=== PATIENT | female | born 1980 | race Caucasian/White ===

== ENCOUNTER 2020-11-27 13:46 | Outpatient (CLI) | payer OTHER, SELFPAY | END 2020-11-27 13:47 | disposition home or self-care (01) | LOC: ANHCOVIDVC 13:46 | PROVIDERS: PCP Obstetrics & Gynecology | DX: Z23 Encounter for immunization (principal) | CPT/HCPCS: 0001A; 91300 ==

== ENCOUNTER 2020-12-18 14:04 | Outpatient (CLI) | payer OTHER, SELFPAY | END 2020-12-18 14:05 | disposition home or self-care (01) | PROVIDERS: PCP Obstetrics & Gynecology | DX: Z23 Encounter for immunization (principal) | CPT/HCPCS: 0002A; 91300 ==

== ENCOUNTER → 2021-01-15 15:02 | Outpatient (CLI) | payer OTHER, SELFPAY ==
--- NOTE | ~2021-01-15 | US_ITS ---
EXAMINATION: US pelvic complete w TV DATE: 01/15/2021 16:10 INDICATION: Pre-fertility check. TECHNIQUE: Multiple transabdominal and transvaginal sonographic images of the pelvis were obtained. COMPARISON: Pelvis MRI 10/20/2018 FINDINGS: TRANSABDOMINAL ULTRASOUND: The uterus measures 8.9 x 4.0 x 5.9 cm. There is no free fluid in the pelvis. TRANSVAGINAL ULTRASOUND: The endometrial complex measures 10 mm in thickness. There is a 2.3 cm subserosal fibroid posteriorly . There is a 10 mm intramural fibroid. The right ovary measures 3.5 x 2.5 x 1.8 cm. There are 5 mm an d 11 mm follicles in the right ovary. The left ovary measures 2.6 x 2.8 x 2.5 cm. 3 mm, 5 mm, and 13 mm follicles in the left ovary. There is normal vascular flow in the ovaries. IMPRESSION: 1. Uterine fibroids. Reviewed, dictated and finalized at location A. IMPRESSION: 1. Uterine fibroids.
== END ==
PROVIDERS: Visit Provider Obstetrics & Gynecology
DX: R10.2 Pelvic and perineal pain (principal); D25.9 Leiomyoma of uterus, unspecified
CPT/HCPCS: 76830; 76856

== ENCOUNTER → 2021-04-24 09:23 | Outpatient (CLI) | payer OTHER, SELFPAY ==
--- NOTE | ~2021-04-24 | US_ITS ---
EXAMINATION: US transvaginal DATE: 04/24/2021 10:14 INDICATION: Assess endometrial thickness for fertility TECHNIQUE: Multiple endovaginal sonographic images of the pelvis were obtained. COMPARISON: None. FINDINGS: The uterus measures 8.7 x 4.2 x 5 cm. A 1.9 x 1.5 x 2.2 cm hypoechoic area of the posterior uterus has the appearance of a subserosal fibroid. The endometrial complex measures 8 mm. The right ovary measures 3.7 x 2 x 2.3 cm. The left ovary measures 2.4 x 2.1 x 2.1 cm. There is normal vascular flow in the ovaries. There is no free fluid in the pelvis. IMPRESSION: 1. Endometrial thickness is 8 mm. Reviewed, dictated and finalized at location B.
== END ==
PROVIDERS: Visit Provider Obstetrics & Gynecology
DX: R93.89 Abnormal findings on diagnostic imaging of other specified body structures (principal); R10.12 Left upper quadrant pain
CPT/HCPCS: 76830

== ENCOUNTER 2021-07-28 13:01 | Emergency (ER) | payer OTHER, SELFPAY ==
[2021-07-28 13:10] VITALS: BP 130/81; PULSE 90; RESP 18; TEMP 36.7; O2SAT 100
--- NOTE | 2021-07-28 13:21 | ED.LOWEXIN ---
HPI - Extremity Injury (Lower) General Chief Complaint: Extremity Injury, Lower Stated Complaint: Left Knee Pain Time Seen by Provider: 07/28/21 13:05 Source: patient and RN notes reviewed History of Present Illness HPI Narrative: Patient is a 41-year-old female who presents the urgent care with complaints of left knee pain that started last night. Patient has been taking Aleve for the pain and states that it did slightly help last night when she was unable to sleep. Patient denies of any trauma, injury or fall. Denies of any known swelling. Patient states that she ran a [employer] approximately 2 weeks ago and was fine at that time . Patient states that she is leaving for [place] on Tuesday and was concerned due to the heavy amount of walking she will be doing. Patient states that she is going to [place] for in vitro fertilization. No other acute complaints. No acute distress noted. Patient read the plan of care. Some parts of this dictation were generated by voice recognition software and may contain typographical and/or grammatical inaccuracies. Related Data Home Medications Medication Instructions Recorded Confirmed drospirenone-ethinyl estradiol tablet 07/28/21 estradiol mg 07/28/21 levothyroxine 07/28/21 Allergies Allergy/AdvReac Type Severity Reaction Status Date / Time No Known Allergies Allergy Unverified 09/22/18 13:03 Review of Systems Review of Systems: CONSTITUTIONAL: Denies fever, chills, or sweats. EYES: Denies visual changes, redness, or discharge. ENT: Denies rhinorrhea, congestion, sore throat, or otalgia. CARDIOVASCULAR: Denies chest pain, palpitations, or edema. RESPIRATORY: Denies cough or dyspnea. GASTROINTESTINAL: Denies abdominal pain, nausea, vomiting, or diarrhea. GENITOURINARY: Denies dysuria or hematuria. SKIN: Denies rash or itching. MUSCULOSKELETAL: Reports of left knee pain NEUROLOGIC: Denies headache, numbness, or weakness. All other systems reviewed are negative, except as documented in HPI. PMFSH Comments At the time of my signature, I reviewed and agree with the nursing past medical, surgical, social, and family history. There is no relevant family history pertinent to the patient complaint. Exam Narrative: GENERAL: This is a well-nourished, well-developed patient, in no apparent distress. HEAD: normocephalic, atraumatic. EYES: PERRL. Sclera clear/white. Vision is grossly intact. EARS: External ears normal NOSE: External nose normal with no obvious nasal discharge, nares without redness, no rhinorrhea. THROAT: Mucous membranes moist NECK: Neck supple CARDIOVASCULAR: Regular rate and rhythm without murmurs, gallops, or rubs. RESPIRATORY: Clear to auscultation. Breath sounds equal bilaterally. No wheezes, rales, or rhonchi. SKIN: warm, intact with no suspicious lesions or rash, good texture and turgor. NEURO: awake, alert, and oriented to person, place and time. There were no obvious focal neurologic abnormalities. EXTREMITIES: No obvious edema, erythema or ecchymosis noted to the left knee. Mild left anterior medial knee tenderness without notable effusion. Range of motion within normal limits with mild exacerbated pain with flexion and weightbearing. Negative drawer test. No obvious injury or deformity noted to the left lower extremity. Positive strong left pedal pulse with capillary refill less than 2 seconds. Course Vital Signs Vital signs: Vital Signs Temperature 98.1 F 07/28/21 13:10 Pulse Rate 90 07/28/21 13:10 Respiratory Rate 18 07/28/21 13:10 Blood Pressure 130/81 07/28/21 13:10 Pulse Oximetry 100 07/28/21 13:10 Temperature 98.1 F 07/28/21 13:10 Pulse Rate 90 07/28/21 13:10 Respiratory Rate 18 07/28/21 13:10 Blood Pressure 130/81 07/28/21 13:10 Pulse Oximetry 100 07/28/21 13:10 Reviewed MDM - Extremity Injury (Lower) MDM Narrative Medical decision making narrative: Advised the patient to wear the knee brace counter from [facility]
== END 2021-07-28 13:30 | disposition home or self-care (01) ==
PROVIDERS: Emergency Provider Nurse Practitioner Family; PCP Physician Assistant
DX: M25.562 Pain in left knee (principal); E89.0 Postprocedural hypothyroidism
CPT/HCPCS: 99212; G0463

== ENCOUNTER → 2021-08-19 14:35 | Outpatient (CLI) | payer OTHER, SELFPAY ==
--- NOTE | ~2021-08-19 | US_ITS ---
EXAMINATION: US OB transvaginal DATE: 08/19/2021 15:26 INDICATION: First trimester viability assessment TECHNIQUE: Real-time pelvic transabdominal and transvaginal ultrasound was performed. COMPARISON: None. FINDINGS: The uterus measures 9.3 x 6.0 x 6.1 cm multiple uterine fibroids are identified. The larges t measures 2.6 cm at the posterior uterine body. There is a 5 mm intrauterine fluid collection. A qu estionable yolk sac is seen. No pole is identified. The right ovary measures 3.1 x 1.6 x 3.1 cm. The left ovary measures 2.9 x 2.3 x 2.5 cm. There is nor mal vascular flow in the ovaries. There is no free fluid in the pelvis. IMPRESSION: 1. Intrauterine fluid collection which could reflect early gestational sac and possible yolk sac. If the patient is clinically stable, recommend followup with serial beta-hCG and ultrasound. Reviewed, dictated and finalized at location A. 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
== END ==
PROVIDERS: Visit Provider Student in an Organized Health Care Education/Training Program
DX: O36.80X0 Pregnancy with inconclusive fetal viability, not applicable or unspecified (principal)
CPT/HCPCS: 76817

== ENCOUNTER 2021-08-27 09:33 | Outpatient (CLI) | payer OTHER, SELFPAY | END 2021-08-27 09:34 | disposition home or self-care (01) | LOC: ANHLAB 09:36 | PROVIDERS: PCP Physician Assistant; Visit Provider Obstetrics & Gynecology | DX: O20.0 Threatened abortion (principal) | CPT/HCPCS: 36415; 84702 ==

== ENCOUNTER → 2021-09-01 08:40 | Outpatient (CLI) | payer OTHER, SELFPAY ==
--- NOTE | ~2021-09-01 | US_ITS ---
EXAMINATION: US OB transvaginal DATE: 09/01/2021 09:11 INDICATION: Threatened spontaneous TECHNIQUE: Real-time transabdominal and transvaginal obstetric ultrasound. FINDINGS: Ultrasound dated 08/19/2021 The uterus measures 9.8 x 5.2 x 4.7 cm. There are multiple uterine fibroids, largest pedunculated fib roid measures 3.8 x 3.3 x 3.2 cm. There is an intrauterine gestational sac, with pole identifie d. There is a small subchorionic hemorrhage. The crown rump length measures 0.62 cm, which correlates with a estimated gestational age of 6 weeks 3 days. heart tones are identified measuring 124 BPM. The ovaries are within normal limits without significant ovarian or adnexal mass. No free fluid. Righ t ovary measures 3.4 x 2.2 x 2.9 cm. Left ovary measures 3 x 2.6 x 2 cm. IMPRESSION: 1. SL IUP with an EGA of 6 weeks, 3 days (EDC by current ultrasound of 04/24/2022). 2: Small subchorionic hemorrhage. 3: Uterine fibroids, largest measuring up to 3.8 cm. Reviewed, dictated and finalized at location A. 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 SL IUP with an EGA of 6 weeks, 3 days (EDC by current ultrasound of 2). 2: Small subchorionic hemorrhage. 3: Uterine fibroids, largest measuring up to 3.8 cm.
== END ==
PROVIDERS: Visit Provider Obstetrics & Gynecology
DX: O20.0 Threatened abortion (principal); O20.8 Other hemorrhage in early pregnancy; Z3A.01 Less than 8 weeks gestation of pregnancy; D25.9 Leiomyoma of uterus, unspecified
CPT/HCPCS: 76817

== ENCOUNTER 2021-10-14 14:48 | Outpatient (CLI) | payer OTHER, SELFPAY ==
[2021-10-14 15:15] VITALS: BP 128/79; PULSE 80
[2021-10-14 15:30] VITALS: BP 131/76; PULSE 80
[2021-10-14 15:45] VITALS: BP 129/76; PULSE 77
[2021-10-14 16:00] VITALS: BP 125/85; PULSE 78
--- NOTE | 2021-10-14 16:05 | PC.NURSE ---
Dr. Amelia Alvarado on unit. BPs given. January D/C home.
--- NOTE | 2021-10-14 16:29 | P.PNOB_ITS ---
OB - Triage/Final Diagnosis Visit Information Date of evaluation: 10/14/21 Reason for evaluation: other (headache) Comments/Additional reasons for admission: I have assessed the risk for this patient, Esther Garcia, and determined that she would benefit from o bservation care. Evaluation Vital signs: Vital Signs - 24 hr 10/14/21 15:15 10/14/21 15:30 10/14/21 15:45 Pulse Rate 80 80 77 Blood Pressure 128/79 131/76 129/76 10/14/21 16:00 Pulse Rate 78 Blood Pressure 125/85
== END 2021-10-14 16:13 | disposition home or self-care (01) ==
LOC: ANHOBOP 14:52 → ANHOBPP 14:55
PROVIDERS: Visit Provider Obstetrics & Gynecology
DX: O26.899 Other specified pregnancy related conditions, unspecified trimester (principal); R03.0 Elevated blood-pressure reading, without diagnosis of hypertension; Z3A.13 13 weeks gestation of pregnancy
CPT/HCPCS: 99199

== ENCOUNTER 2022-03-29 13:54 | Outpatient (RCR) | payer OTHER, SELFPAY ==
[2022-03-29 14:30] VITALS: BP 130/81; PULSE 81
== END 2022-04-23 14:57 | disposition home or self-care (01) ==
LOC: ANHOBOP 13:54
PROVIDERS: PCP Physician Assistant; Visit Provider Obstetrics & Gynecology
DX: Z36.89 Encounter for other specified antenatal screening (principal); Z3A.36 36 weeks gestation of pregnancy
CPT/HCPCS: 59025

== ENCOUNTER 2022-04-19 15:59 | Inpatient (IN) | payer OTHER, SELFPAY ==
[2022-04-19] VITALS (12 sets, daily range): BP systolic 128–159; BP diastolic 83–98; PULSE 74–96; BMI 33.0
--- NOTE | 2022-04-19 16:33 | LDADM ---
This patient, Esther Garcia, was admitted to Labor/Delivery/Recovery 108 on 04/19/22 at 15:59. Plans for labor, pain management and were discussed with patient. Patient/family oriented to hospital policies and general routines including ID bracelet, bed and alarms, visiting hours, pain management, procedures, bathroom and other care routines, personal items, smoking policy, room service/diet and guest tray routines, infant security routines, and visiting hours. Patient/Family are encouraged to report perceived risks to care and to ask questions if they do not understand what they are told or what they should do. See OBIX for further documentation.
[2022-04-19 16:42] LABS: Basophils Percent Auto 0.1 % (0.2-1.2); Eosinophils Absolute Auto 0.1 K/mm3 (0-0.3); Eosinophils Percent Auto 0.9 % (0-4.4); Hematocrit 38.9 % (37.0-47.0); Immature Granulocyte Absolute 0.03 K/mm3 (0.00-0.031); Immature Granulocyte Percent A 0.4 % (0-0.5); Lymphocytes Absolute Auto 1.43 K/mm3 (0.9-3.2); Lymphocytes Percent Auto 18.3 % (18.3-44.2); Mean Corpuscular HGB Conc 33.4 g/dl (32-36); Mean Corpuscular Hemoglobin 30.3 pg (26-34); Mean Corpuscular Volume 90.7 fl (80-100); Mean Platelet Volume 10.3 fl (7.4-10.4); Monocytes Absolute Auto 0.5 K/mm3 (0.1-0.6); Monocytes Percent Auto 5.9 % (2.6-8.5); Neutrophils Absolute Auto 5.8 K/mm3 (1.3-6.7); Neutrophils Percent Auto 74.4 % (45.5-73.1); Platelet Count Result 220 k/mm3 (150-375); Red Blood Count 4.29 M/mm3 (4.2-5.4); White Blood Count 7.8 K/mm3 (4.5-10.0)
[2022-04-19] MEDS: DINOPROSTONE 10 MG VAG INSERT VAGINAL (16:52)
--- NOTE | 2022-04-19 19:07 | WPDANESEPP ---
Anes - Eval Pre Procedure Procedure: labor epidural Date/Time: 04/19/22 19:07 Surgeon: isaiah Preop Diagnosis: pain during labor Pre Op Diagnosis: Induction of Labor Patient Data Age: 41 Gender: F Height: 1.78 m Weight: 104.5 kg Last Vital Signs Pulse 96 04/19/22 18:45 BP 139/94 H 04/19/22 18:45 O2 Del Method Room Air 04/19/22 16:30 Allergies Allergy/AdvReac Type Severity Reaction Status Date / Time No Known Allergies Allergy Verified 04/19/22 17:44 Home Medications Medication Instructions Recorded Confirmed Type levothyroxine 25 mcg tablet 25 mcg PO DAILY 07/28/21 04/19/22 History Laboratory Tests 04/19/22 04/19/22 04/19/22 16:19 16:19 17:16 WBC 7.8 K/mm3 K/mm3 (4.5-10.0) RBC 4.29 M/mm3 M/mm3 (4.2-5.4) Hgb 13.0 g/dL g/dL (12.0-15.0) Hct 38.9 % % (37.0-47.0) MCV 90.7 fl fl (80-100) MCH 30.3 pg pg (26-34) MCHC 33.4 g/dl g/dl (32-36) RDW 13.0 % % (11.5-14.5) Plt Count 220 k/mm3 k/mm3 (150-375) MPV 10.3 fl fl (7.4-10.4) Immature Gran % (Auto) 0.4 % % (0-0.5) Neut % (Auto) 74.4 % H % (45.5-73.1) Lymph % (Auto) 18.3 % % (18.3-44.2) [place] % (Auto) 5.9 % % (2.6-8.5) Eos % (Auto) 0.9 % % (0-4.4) Baso % (Auto) 0.1 % L % (0.2-1.2) Lymph # (Auto) 1.43 K/mm3 K/mm3 (0.9-3.2) [place] # (Auto) 0.5 K/mm3 K/mm3 (0.1-0.6) Eos # (Auto) 0.1 K/mm3 K/mm3 (0-0.3) Baso # (Auto) 0.0 K/mm3 K/mm3 (0.0-0.1) Abs Immat Gran (auto) 0.03 K/mm3 K/mm3 (0.00-0.031) Absolute Neuts (auto) 5.8 K/mm3 K/mm3 (1.3-6.7) Absolute Nucleated RBC 0.0 K/mm3 K/mm3 (0.0-0.012) Nucleated RBC % 0.0 % % (0.0-0.2) RPR Pending Blood Type O Positive Antibody Screen Negative Patient hx anesthesia problems: none Family hx anesthesia problems: none Results Review: All pre-operative results and documents have been reviewed as part of the pre-operative evaluation. [facility] Past Medical History Medical History (Updated 04/19/22 @ 19:08 by Casie Griffin CRNA) Hypothyroid IUP (intrauterine ), incidental Obesity (BMI 30-39.9) Family History Family History (Updated 03/27/22 @ 13:50 by Haley Seaman RN) Other Unknown family medical history Social History Social History Smoking status: Never smoker Substance use: never Spiritual care concerns: No Exam Day of Procedure 04/19/22 19:07
[2022-04-20] VITALS (242 sets, daily range): BP systolic 61–157; BP diastolic 26–132; PULSE 55–219; RESP 16–18; TEMP 35.9–37.6; O2SAT 98–100
[2022-04-20] MEDS: LACTATED RINGERS 1,000 ML 125 ML IV CONT ×6 (00:15→15:43)
[2022-04-20] MEDS: fentaNYL CITRATE INJ (*CRX) 100 MCG/2 ML VIAL 50 MCG IV PUSH ×2 (01:03→08:21)
[2022-04-20 06:20] LABS: Rapid Plasma Reagin Non-Reactive (NonReactive)
[2022-04-20] MEDS: OXYTOCIN 30 UNITS/NS 500 ML 30 UNITS/500 ML BAG 6 UNITS IV CONT (06:35)
[2022-04-20 06:46] LABS: Basophils Percent Auto 0.1 % (0.2-1.2); Eosinophils Absolute Auto 0.1 K/mm3 (0-0.3); Eosinophils Percent Auto 1.2 % (0-4.4); Hematocrit 40.4 % (37.0-47.0); Hemoglobin 13.2 g/dL (12.0-15.0); Immature Granulocyte Absolute 0.05 K/mm3 (0.00-0.031); Immature Granulocyte Percent A 0.6 % (0-0.5); Lymphocytes Absolute Auto 1.41 K/mm3 (0.9-3.2); Mean Corpuscular HGB Conc 32.7 g/dl (32-36); Mean Corpuscular Hemoglobin 30.4 pg (26-34); Mean Corpuscular Volume 93.1 fl (80-100); Mean Platelet Volume 10.9 fl (7.4-10.4); Monocytes Absolute Auto 0.6 K/mm3 (0.1-0.6); Neutrophils Absolute Auto 5.7 K/mm3 (1.3-6.7); Neutrophils Percent Auto 73.1 % (45.5-73.1); Platelet Count Result 227 k/mm3 (150-375); Red Blood Count 4.34 M/mm3 (4.2-5.4); Red Cell Distribution Width 13.2 % (11.5-14.5); White Blood Count 7.8 K/mm3 (4.5-10.0)
--- NOTE | 2022-04-20 08:16 | PM.IMHP ---
H&P: HPI History of Present Illness Date/Time: 04/20/22 08:16 Chief Complaint: Here for induction of labor. Narrative: 41 y/o at 39 6/7 weeks here for induction of labor. IVF / donor egg . Well-controlled hypothyroidism. Cervidil last night, has been withdrawn. Feeling occasional contractions. GBS neg. Review of Systems Review of Systems: All systems reviewed & are unremarkable except as noted in HPI and below PMFSH Past Medical History Medical History (Updated 04/20/22 @ 08:20 by Elias Sharma MD) Hypothyroid IUP (intrauterine ), incidental Obesity (BMI 30-39.9) Surgical History Surgical History History of breast augmentation History of D&C History of thyroidectomy, total Family History Family History Other Diabetes mellitus Hypertension Unknown family medical history Social History Social History Smoking status: Never smoker Substance use: never Spiritual care concerns: No Meds Home Medications and Allergies Home Medications Medication Instructions Recorded Confirmed Type levothyroxine 25 mcg tablet 25 mcg PO DAILY 07/28/21 04/19/22 History Allergies Allergy/AdvReac Type Severity Reaction Status Date / Time No Known Allergies Allergy Verified 04/19/22 17:44 Vital Signs Vital Signs - 24 hr 04/19/22 16:19 04/19/22 16:30 04/19/22 16:45 Temperature Pulse Rate 91 96 86 Respiratory Rate Blood Pressure 143/88 H 150/93 H 148/93 H Oxygen Delivery 04/19/22 17:30 04/19/22 17:45 04/19/22 18:00 Temperature Pulse Rate 85 91 91 Respiratory Rate Blood Pressure 148/98 H 138/91 H 135/93 H Oxygen Delivery 04/19/22 18:15 04/19/22 18:30 04/19/22 18:45 Temperature Pulse Rate 85 89 96 Respiratory Rate Blood Pressure 135/83 139/88 139/94 H Oxygen Delivery 04/19/22 23:04 04/19/22 23:15 04/19/22 23:30 Temperature Pulse Rate 74 79 83 Respiratory Rate Blood Pressure 159/86 H 133/83 128/92 H Oxygen Delivery 04/20/22 03:27 04/20/22 06:36 04/20/22 06:45 Temperature 36.5 C 36.2 C L Pulse Rate 65 92 83 Respiratory Rate 16 18 Blood Pressure 139/77 153/95 H 146/92 H Oxygen Delivery 04/20/22 07:02 04/20/22 07:15 04/20/22 07:31 Temperature Pulse Rate 85 98 90 Respiratory Rate Blood Pressure 137/84 104/81 137/73 Oxygen Delivery 04/20/22 07:45 04/20/22 08:01 04/20/22 08:15 Temperature Pulse Rate 86 86 68 Respiratory Rate Blood Pressure 134/76 135/82 140/87 Oxygen Delivery 04/19/22 16:30 Temperature Pulse Rate Respiratory Rate Blood Pressure Oxygen Delivery Room Air Exam Const: Orientation/consciousness: patient oriented x3 Other: Well-developed, well-nourished female in no acute distress. Neck: Thyroid: thyroid normal Lymphatic: no lymphadenopathy noted (in neck, axilla or inguinal nodes) Resp: Effort & Inspection: normal respiratory effort Auscultation: clear to auscultation bilaterally Cardio: Rate: regular rate Rhythm: regular rhythm Heart sounds: S1 normal heart sound present and S2 normal heart sound present GI: Other: ABD: Soft, nontender, nondistended, gravid, vertex. NST reactive. TOCO: contractions irregularly. No guarding or rebound tenderness. No hepatosplenomegaly. : General: Yes no CVA tenderness Other: Cervix 2/50/-2. AROM with clear fluid. Vertex. Back/Spine/Pelvis: Back: no CVA tenderness Skin: General skin exam: normal color and no rashes or lesions noted Neuro: General: patient oriented x3 Extrem: Other: Extremities: nontender with no edema Psych: Mental Status: mental status grossly normal Affect: normal affect H&P: Results Labs Labs: Short CBC 04/19/22 04/20/22 Range/Units 16:19 06:41 WBC 7.8 7.8 (4.5-10.0) K/m
[2022-04-20] MEDS: PHENYLEPHRINE 1,000 MCG/10 ML SYRINGE 100 MCG IV PUSH ×3 (10:48→11:01)
[2022-04-20] MEDS: ePHEDrine sulfate INJ 50 MG/ML AMPUL IV PUSH ×2 (11:09→11:28)
--- NOTE | 2022-04-20 11:58 | PM.OBPNLAB ---
Pain Control Date/time seen: 04/20/22 11:58 Comfortable with epidural. AVSS NST reactive. Irregular contractions. Cervix 2-3/50/-2. IUPC placed. Continue labor.
[2022-04-20] MEDS: ONDANSETRON INJ 4 MG/2 ML VIAL IV PUSH (15:52)
--- NOTE | 2022-04-20 16:46 | PM.OBPNLAB ---
Pain Control Date/time seen: 04/20/22 16:46 Comfortable with epidural. AVSS NST reactive TOCO: contractions every 3-4 min Cervix 4-5/80/-2 Continue labor
--- NOTE | 2022-04-20 22:45 | PM.OBPNLAB ---
Pain Control Date/time seen: 04/20/22 22:45 Pushing. AVSS NST reactive TOCO: contractions every 3 min Cervix C/+2 Anticipate .
--- NOTE | 2022-04-20 23:49 | PM.OBPRVD ---
OB - Delivery Note Procedure Delivery date: 04/20/22 Procedure: Induction of labor with Induction method: Per Cervidil Protocol Delivery augmentation: Rupture of Membranes and Pitocin Delivery monitor: External FHT, External Uterine and Internal Uterine Route of delivery: Laceration Description: Perineal - 2nd Degree Delivery repair: vicryl (3-0 Vicryl) Specimen: Yes (cord blood) Quantitative Blood Loss (ml): 320 Anesthesia type: Epidural Disposition: PACU Complications: None Narrative: 41 y/o at 39 6/7 weeks gestation who presented to the hospital for induction of labor. Cervidil was placed overnight, then withdrawn the next morning. Oxytocin was administered intravenously. Amniotomy was performed with return of clear fluid. She received an epidural for pain control. Her labor progressed and her cervix dilated completely. She pushed with good effort and delivered the 's head to the perineum. A loose nuchal cord was splinted and the body delivered. The cord was reduced and the nose and mouth were bulb suctioned. After a delay, the cord was clamped and cut. The was handed off the field. Cord blood was collected. The placenta delivered spontaneously and was grossly normal in appearance. The usual 3 vessel cord was noted. A second degree midline perineal laceration was sustained. This was reapproximated using 3 0 Vicryl in the usual layered fashion. Excellent hemostasis resulted as did excellent reapproximation of the normal anatomy. Needle and instrument counts were correct. The patient was taken to recovery room in stable condition. The infant went to the nursery in stable condition. I was present and scrubbed for the entire delivery. Baby Date of : 04/20/22 Time of : 23:25 Weeks of gestation at delivery: 39 gender: Male Weight (pounds): 7 Weight (ounces): 7 presentation: vertex position: Right Occiput Anterior Placenta delivery description: Spontaneous and Normal Configuration Cord Vessel Description: 3 Vessels, Nuchal Cord and Delayed Cord Clamping score one minute: 9 score five minutes: 9
--- NOTE | 2022-04-20 23:53 | PM.OBDSVD ---
DS: Admitting Diagnosis Discharge Date 04/22/11 Admitting Diagnosis IUP at 39 6/7 weeks DS: Discharge Diagnosis Discharge Diagnosis (1) (normal spontaneous vaginal delivery): Code(s): O80 - Encounter for full-term uncomplicated delivery Status: Acute OB - DS: Summary OB Procedures : None OB Procedures Intrapartum: Spontaneous Vag Delivery OB Procedures: : None Time Spent with Patient Time attestation: Total time spent providing and/or coordinating discharge services: DS: Data Data Completed and Pending Labs on day of discharge: Labs from last 24 hours 04/20/22 04/19/22 06:41 16:19 WBC 7.8 RBC 4.34 Hgb 13.2 Hct 40.4 MCV 93.1 MCH 30.4 MCHC 32.7 RDW 13.2 Plt Count 227 MPV 10.9 H Immature Gran % (Auto) 0.6 H Neut % (Auto) 73.1 Lymph % (Auto) 18.0 L [place] % (Auto) 7.0 Eos % (Auto) 1.2 Baso % (Auto) 0.1 L Lymph # (Auto) 1.41 [place] # (Auto) 0.6 Eos # (Auto) 0.1 Baso # (Auto) 0.0 Abs Immat Gran (auto) 0.05 H Absolute Neuts (auto) 5.7 Absolute Nucleated RBC 0.0 Nucleated RBC % 0.0 RPR Non-reactive Discharge Plan Discharge Attending physician on discharge: Elias Sharma Discharging Clinician: Elias Sharma Patient Disposition: Home, Self-Care Activity: pelvic rest Diet: regular Discharge Instructions: Call or return if temperature above 100.4? F, increased abdominal pain, increased vaginal bleeding or any new problems. Stand Alone Forms: General Discharge Information Follow-up/Referrals: Elias Sharma MD [Physician] - 6 Weeks Discharge Medications: New ibuprofen 600 mg tablet 600 mg PO Q6H PRN (Reason: cramps) Qty: 30 0RF Continued levothyroxine 25 mcg tablet 25 mcg PO DAILY Rx Instructions: Pt states taking 200 mcg daily Date of admission: 04/19/22 15:59 Primary Care Provider: ChaLeslie Admitting Provider: Elias Sharma Attending physician on admission: Elias Sharma Condition: Stable
[2022-04-21] VITALS (9 sets, daily range): BP systolic 137–156; BP diastolic 76–93; PULSE 74–104; RESP 16–18; TEMP 36.3–36.6; O2SAT 98–100
[2022-04-21] MEDS: OXYTOCIN 30 UNITS/NS 500 ML 30 UNITS/500 ML BAG 125 UNITS IV CONT (00:05)
[2022-04-21] MEDS: WITCH HAZEL 40 PADS 1 PAD TOPICAL (02:03)
[2022-04-21] MEDS: BENZOCAINE 20% AER SPR (*SP) 56 GM CAN 1 SPRAY TOPICAL (02:03)
[2022-04-21] MEDS: IBUPROFEN 600 MG TABLET PO ×4 (02:12→23:26)
--- NOTE | 2022-04-21 07:00 | PC.NURSE ---
PT introductions made and plan of care discussed per post , pain management, breast feeding, possible pumping, daily care activities. PT and spouse both received such instruction and no barriers to learning identified at this time. PT received such instructions per one to one discussion, mom baby care guide and demonstrations this shift. PT verbalized understanding of such care.
--- NOTE | 2022-04-21 08:19 | WPDANLDPN2 ---
Anes-Prog Note L&D Date/Time: 04/21/22 08:19 Comfortable throughout: labor and delivery Neuraxial method: epidural Neuro status: Neuro function grossly intact. Cardiovascular status: normal Respiratory status: normal Airway patency: baseline Mental status: baseline Post-Op hydration status: normal Vital Signs: Last Vital Signs Temp 97.7 F 04/21/22 02:39 Pulse 96 04/21/22 02:39 Resp 18 04/21/22 02:39 BP 150/79 H 04/21/22 02:39 Pulse Ox 98 04/21/22 02:39 O2 Del Method Room Air 04/21/22 02:39 Pain score (VAS): 09/21 I/O: Intake & Output 04/20/22 04/21/22 04/21/22 23:59 07:59 15:59 Intake Total 500 Output Total 110 Balance 390 Post-procedural complaints: none Patient feedback: Patient satisfied with anesthetic care.
--- NOTE | 2022-04-21 08:39 | PM.OBPNVD ---
OB - PN: Subj Subjective Date/time seen: 04/21/22 08:39 Narrative: Pain OK. Would like circumcision for son. OB - PN: Obj Data Labs CBC & Chem 7: 04/20/22 06:41 OB - PN A/P Plan Comments: A: PPD#1, doing well. P: Routine care. Reviewed circ. Exam Psych: Other: AVSS ABD soft, nontender, fundus firm EXT nontender
[2022-04-21] MEDS: MULTIVIT/MIN/PREN/FOL AC/IRON TABLET 1 TAB PO (09:00)
[2022-04-21] MEDS: LEVOTHYROXINE SODIUM 100 MCG TABLET 200 MCG PO (10:15)
[2022-04-21] MEDS: DOCUSATE SODIUM 100 MG CAPSULE PO ×2 (10:15→16:28)
[2022-04-21] MEDS: ACETAMINOPHEN 325 MG TABLET 650 MG PO ×3 (10:18→23:25)
[2022-04-21] MEDS: LANOLIN (LANSINOH) 7.5 GM CREAM 1 APPLIC TOPICAL (10:20)
--- NOTE | 2022-04-21 13:50 | PC.NURSE ---
[id number] (Primary RN reported blood sugar of 77 mg/dl at 0755) Introductions were made, then consulted with patient to assess needs related to . Mother led the conversation with her?plans to feed?her infant and the?experience so far. Resources provided for inpatient and outpatient services using a resource guide and mom/baby guide. Mother voiced understanding of information and receives assistance at this time. Mother led the conversation with her questions regarding . Mother works well with her with encouragement and education. Encouraged understanding of the benefits of skin to skin (unwrapping infant and placing vertically on her chest), responsive feeding and how to watch for early feeding signs, frequency of feeding on demand about every 8-12 times in 24 hours (every 2-3 hours), milk production, duration of feeding, signs of adequate intake/output and how to record on the feeding sheet. Reviewed positioning and ear, shoulder, hip alignment, supporting the breast, asymmetrical latch (off-center), and leading with the chin with a big open side gape. latched optimally to the right breast in football position. Education given to mother of how to visualize suck/swallow ratios and drinking at the breast. Mother states she has nipple tenderness and rates pain 4 . Infant is latched with big, wide, open gape, nice rounded cheek line, and good suck swallow ratios. Infant detached two different times to assess mother's nipple and there is no misshaping of signs of a poor latch. Infant was able to maintain latch without discomfort to mother after mother noticed the sensitivity might be related to her nipples have been tender with her . After for 5 min mother states the pain was better and it felt like sucking . Nipple care reviewed with optimal latch and good positioning. Reminding mother of comfort measures of healing with a warm and wet washcloth to rinse breast, then leave open to air-dry as needed. Reviewed good handwashing when or touching the breast/nipples to prevent infection. Resources used to facilitate learning were used with the visual handouts/ tool/mom and baby guide. Mother voiced understanding of responsive feedings, stimulating with skin to skin, hand expressed colostrum, talking to infant to encourage if it has been 2 -3 hours since the start of the last , to call if does not latch, and/or there is discomfort with . Reported to the primary RN.
[2022-04-22 08:30] VITALS: BP 139/79; PULSE 78; RESP 18; TEMP 36.6; O2SAT 99
--- NOTE | 2022-04-22 08:56 | PM.OBPNVD ---
OB - PN: Subj Subjective Date/time seen: 04/22/22 08:56 Narrative: Pain OK. Would like to go home. OB - PN: Obj Data Labs CBC & Chem 7: 04/20/22 06:41 OB - PN A/P Assessment and Plan (1) (normal spontaneous vaginal delivery): Code(s): O80 - Encounter for full-term uncomplicated delivery Status: Acute Plan Comments: A: PPD#2, doing well. P: Home to f/u 6 weeks. Time Spent With Patient Time with patient: less than 15 minutes Exam Psych: Other: AVSS ABD soft, nontender, fundus firm EXT nontender
[2022-04-22] MEDS: LEVOTHYROXINE SODIUM 100 MCG TABLET 200 MCG PO (09:28)
[2022-04-22] MEDS: ACETAMINOPHEN 325 MG TABLET 650 MG PO (09:28)
[2022-04-22] MEDS: MULTIVIT/MIN/PREN/FOL AC/IRON TABLET 1 TAB PO (09:28)
[2022-04-22] MEDS: IBUPROFEN 600 MG TABLET PO (09:29)
--- NOTE | 2022-04-22 13:17 | PC.NURSE ---
[id number] Mother led the conversation with her experience and plan to feed her so far and her ability to independently latch optimally without discomfort at times and using supplementation of formula to feed . Reminded parents to use good handwashing technique to prevent infection. Mother is feeding appropriately for growth of infant and understands stimulating infant to eat if needed. has had appropriate feedings in the last 24 hours meets the outcomes for weight, output and jaundice at this time. Mother states she is confident to continue to feed her at home and when to call for assistance. Reinforced understanding of milk production, transition of milk, signs of adequate intake, prevention/relief of engorgement, responsive after visualizing feeding cues, the different methods of stimulating infant to breastfeed 2-3 hours after the start of the last feeding, community resources, medication information reviewed per [employer], medical history possibly effecting milk production and when to call a provider using the resource of the mom and baby guide/[facility] website. Mother voiced understanding of the education shared. Primary RN in the room with now.
[2022-04-23 12:02] VITALS: BP 135/78; PULSE 70; RESP 18; TEMP 36.8; O2SAT 99
== END 2022-04-22 14:38 | disposition home or self-care (01) | DRG 807 ==
LOC: ANHLDR 04-20 23:55 → ANHOB2 04-21 02:28
PROVIDERS: Admitting Provider Obstetrics & Gynecology; PCP Physician Assistant; Visit Provider Obstetrics & Gynecology
DX: O99.284 Endocrine, nutritional and metabolic diseases complicating childbirth (principal); Z37.0 Single live birth; E03.9 Hypothyroidism, unspecified; O99.214 Obesity complicating childbirth; O70.1 Second degree perineal laceration during delivery; O69.81X0 Labor and delivery complicated by cord around neck, without compression, not applicable or unspecified; O76 Abnormality in fetal heart rate and rhythm complicating labor and delivery; Z3A.39 39 weeks gestation of pregnancy; Z90.89 Acquired absence of other organs
CPT/HCPCS: 36415; 85025; 86592; 86850; 86900; 86901; A9270; J2370; J2405; J2590; J2795; J3010; J7120

== ENCOUNTER 2022-11-16 08:13 | Outpatient (CLI) | payer OTHER, SELFPAY ==
--- NOTE | ~2022-11-16 | MM_ITS ---
EXAMINATION: MM scrn devi implant BI w theresa HISTORY: Screening mammogram TECHNIQUE: Craniocaudal and mediolateral oblique 3-D tomosynthesis images with implant displacement a nd synthetic 2-D images were generated. Craniocaudal and mediolateral oblique views of the breasts wi thout implant displacement were obtained using full field digital mammography. CAD analysis was submi tted and interpreted. COMPARISON: None, baseline BREAST PARENCHYMAL COMPOSITION: The breasts are heterogeneously dense, which may obscure small masses . FINDINGS: RIGHT BREAST: There is no evidence of suspicious mass, calcification, or architectural distortion to suggest malignancy. LEFT BREAST: An asymmetry is present in the anterior third of the inner breast 3.5 cm from the nipple on the implant displaced craniocaudal view. IMPRESSION: 1. Left breast asymmetry. 2. Additional mammographic views and possible breast ultrasound are recommended. BI-RADS Category 0: Incomplete: Needs additional imaging evaluation. Reviewed, dictated and finalized at location A. ACER IMPRESSION: 1. Left breast asymmetry. 2. Additional mammographic views and possible breast ultrasound are recommended . BI-RADS Category 0: Incomplete: Needs additional imaging evaluation.
== END 2022-11-16 08:14 | disposition home or self-care (01) ==
PROVIDERS: PCP Physician Assistant; Visit Provider Obstetrics & Gynecology
DX: Z12.31 Encounter for screening mammogram for malignant neoplasm of breast (principal); R92.8 Other abnormal and inconclusive findings on diagnostic imaging of breast
CPT/HCPCS: 77063; 77067

== ENCOUNTER 2022-12-03 11:31 | Outpatient (CLI) | payer OTHER, SELFPAY ==
--- NOTE | ~2022-12-03 | MMUS_ITS ---
EXAMINATION: MM diag devi implant LT w theresa, US breast LT complete HISTORY: Follow-up left breast asymmetry TECHNIQUE: Additional 3-D tomosynthesis images of the left breast were performed and synthetic 2-D im ages were generated. CAD analysis was submitted and interpreted. High resolution complete left breast ultrasound was performed. COMPARISON: 11/16/2022 BREAST PARENCHYMAL COMPOSITION: The breasts are heterogeneously dense, which may obscure small masses FINDINGS: MAMMOGRAPHIC FINDINGS: There are no suspicious masses, calcifications or architectural distortion in the left breast to sugg est malignancy. There is a subpectoral saline implant. ULTRASOUND: Complete US of all 4 quadrants of the left breast and retroareolar region was reviewed. At 12:00, 3 c m from the nipple, there is an oval circumscribed hypoechoic mass measuring 3.5 mm with parallel orie ntation, no significant posterior features, most likely a complicated cyst. No other discrete solid o r cystic masses. IMPRESSION: 1. Probable benign left breast mass at 12:00, 3 cm from the nipple. 2. Recommend 6 month follow-up Limited left breast ultrasound BI-RADS category 3, probably benign findings. Reviewed, dictated and finalized at location A. IMPRESSION: 1. Probable benign left breast mass at 12:00, 3 cm from the nipple. 2. Recommend 6 month follow-up Limited left breast ultrasound BI-RADS category 3, probably benign findings.
== END 2022-12-03 11:32 | disposition home or self-care (01) ==
PROVIDERS: PCP Physician Assistant; Visit Provider Obstetrics & Gynecology
DX: R92.8 Other abnormal and inconclusive findings on diagnostic imaging of breast (principal)
CPT/HCPCS: 76641; 77061; 77065; G0279

== ENCOUNTER 2023-05-03 12:07 | Outpatient (CLI) | payer OTHER, SELFPAY ==
--- NOTE | ~2023-05-03 | MMUS_ITS ---
EXAMINATION: MM diag devi implant LT w theresa, US breast LT limited HISTORY: Six-month follow-up of probable benign left breast mass at 12:00 3 cm from nipple TECHNIQUE: Full field and spot implant displaced ML, MLO and CC 3-D tomosynthesis images of the left breast were performed and synthetic 2-D images were generated. Full field implant ML, MLO and CC view s. CAD analysis was submitted and interpreted. High resolution targeted left breast 12:00 breast ultr asound was performed. COMPARISON: 11/29/2022 left diagnostic implant mammogram and left complete breast ultrasound examinati on 11/16/2022 bilateral implant screening mammogram BREAST PARENCHYMAL COMPOSITION: The breasts are heterogeneously dense, which may obscure small masses . FINDINGS: MAMMOGRAPHIC FINDINGS: Status post augmentation mammoplasty. No reproducible mass or architectural distortion, malignant calcification, skin thickening or retract ion of the left breast is detected. ULTRASOUND: The previously reported 3.5 mm hypoechoic mass at 12:00 3 cm the nipple is no longer identified, cons istent with resolved a small cyst. IMPRESSION: 1. No mammographic or sonographic evidence of malignancy 2. Routine mammographic screening is recommended BI-RADS Category 1: Negative Reviewed, dictated and finalized at location A. IMPRESSION: 1. No mammographic or sonographic evidence of malignancy 2. Routine mammographic screening is recommended BI-RADS Category 1: Negative
== END 2023-05-03 12:08 | disposition home or self-care (01) ==
PROVIDERS: PCP Physician Assistant; Visit Provider Obstetrics & Gynecology
DX: R92.8 Other abnormal and inconclusive findings on diagnostic imaging of breast (principal)
CPT/HCPCS: 76642; 77061; 77065; G0279

== ENCOUNTER 2024-01-13 10:09 | Outpatient (CLI) | payer OTHER, SELFPAY ==
--- NOTE | ~2024-01-13 | MM_ITS ---
EXAMINATION: MM scrn devi implant BI w theresa HISTORY: Screening mammogram TECHNIQUE: Craniocaudal and mediolateral oblique 3-D tomosynthesis images with implant displacement a nd synthetic 2-D images were generated. Craniocaudal and mediolateral oblique views of the breasts wi thout implant displacement were obtained using full field digital mammography. CAD analysis was submi tted and interpreted. COMPARISON: 05/03/2023 diagnostic left implant mammogram and limited left breast ultrasound examinatio n 12/03/2022 diagnostic left implant mammogram and incomplete left breast ultrasound 3. Slice 03/2023 bilateral implants screening mammogram BREAST PARENCHYMAL COMPOSITION: The breasts are heterogeneously dense, which may obscure small masses . FINDINGS: Status post bilateral augmentation mammoplasty. There is left implant rupture and collapse. .There is no evidence of suspicious mass, calcification, or architectural distortion to suggest malig lior in either breast. There has been no suspicious interval change. IMPRESSION: 1. Left implant rupture. No mammographic evidence of malignancy. 2. Recommend routine screening mammography in one year. BI-RADS Category 2: Benign finding(s). Reviewed, dictated and finalized at location A.
== END 2024-01-13 10:10 | disposition home or self-care (01) ==
LOC: ANHIMG 10:18
PROVIDERS: PCP Physician Assistant; Visit Provider Obstetrics & Gynecology
DX: Z12.31 Encounter for screening mammogram for malignant neoplasm of breast (principal)
CPT/HCPCS: 77063; 77067

== ENCOUNTER 2025-02-09 07:48 | Outpatient (CLI) | payer OTHER, SELFPAY ==
--- NOTE | ~2025-02-09 | MM_ITS ---
EXAMINATION: MM screening devi BI w theresa HISTORY: Screening TECHNIQUE: Craniocaudal and mediolateral oblique 3-D tomosynthesis images were obtained and synthetic 2-D images were generated. CAD analysis was submitted and interpreted. COMPARISON: Comparison to multiple prior studies sequentially, with oldest reviewed study dated 03/2023. BREAST PARENCHYMAL COMPOSITION: Dense: The breasts are heterogeneously dense, which may obscure small masses FINDINGS: There are new asymmetries in the subareolar location of the left breast and laterally in th e left breast on CC view. The right breast is stable without evidence for malignancy and there are bi lateral subpectoral saline implants. IMPRESSION: 1. New left breast asymmetries on CC view. 2. Additional mammographic views and possible breast ultrasound are recommended. BI-RADS Category 0: Incomplete: Needs additional imaging evaluation. Reviewed, dictated and finalized at location A. IMPRESSION: 1. New left breast asymmetries on CC view. 2. Additional mammographic views and possible breast ultrasound are recommended . BI-RADS Category 0: Incomplete: Needs additional imaging evaluation.
--- OUTSIDE RECORDS SUMMARY | 2025-02-09 07:53 | XMS_ITS | Data Portability ---
Author Organization [place] [facility], Main Office Address [address] [place] [address] Assessment No assessment recorded. Plan of Treatment Reminders Order Date Submit Date Provider Last Modified By Organization Details Last Modified Time Details Appointments None recorded. Lab lipid panel, serum 2022 023 [email or web address] [facility], [address] [place] [address], [id number], 4 10:04:27 CBC w/ auto diff 2022 023 [email or web address] [facility], [address] [place] [address], [id number], 4 10:04:27 CMP, serum or plasma 2022 023 [email or web address] [facility], [address] [place] [address], [id number], 4 10:04:27 HbA1c (hemoglobin A1c), blood 2022 023 [email or web address] [facility], [address] [place] [address], [id number], 4 10:04:27 TSH + free T4, serum 2022 023 [email or web address] [facility], [address] [place] [address], [id number], 4 10:04:27 Referral None recorded. Procedures None recorded. Surgeries None recorded. Imaging None recorded. Medication Orders phentermine 37.5 mg tablet 2022 023 MEEK [id number], [address] , [place], [place], [phone], 14:51:29 Patient TargetsNo targets recorded. Patient InstructionsNo instructions recorded. Reason for Referral None Reported. Results Created Date Observation Date Name Description Value Unit Range Abnormal Flag Note LastModifiedBy Organization Detail LastModifiedTime 01/13/2012/03/2022 MAMMO , diagn ostic , digit al, unila teral No observ ation record ed. [email or web address] [facility] [address], [place], [address], 07/10/2023 08:48:21 Result Notes None recorded. Problems Name Problem SNOMED Code Status Onset Date Resolution Date Notes Provider Name and Address Organization Details Recorded Time Acute low back pain 593367120 Active 2022 Not Available [facility] 3 20:03:00 Hypothyroidis m 08885065 Active 2019 Not Available [facility] 3 20:03:00 Weight gain 3316404 Active 2022 HAWA Bradley [address] [address] [facility] [address], [place], [address] , [facility] [employer] [facility] 3 14:50:54 Problem Notes None recorded. Procedures Surgical History Date Name Laterality Status Provider Name and Address Organization Details Recorded Time 9 CABINET BUILDER Surgery completed Not Available [facility] 11/11/19 20:01:59 2 Removal of thyroid completed Not Available [facility] 11/10/2022 20:01:59 Imaging Results None recorded. Procedure Notes None recorded. Medical Equipment None Reported. Allergies No known drug allergies Medications Name Sig Start Date Stop Date Status Note LastModified by Organization Details LastModified Time cyclobenzap rine 10 mg tablet Take 1 tablet 3 times a day by oral route as needed. 07/06 completed Not Available Not Available Not Available Mirena 21 mcg/24 hr (up to 8 years) 52 mg intrauterin e device active Not Available Not Available Not Available levothyroxi ne 175 mcg tablet TAKE 1 TABLET BY MOUTH EVERY DAY IN THE MORNING 2023 active Not Available Not Available Not Avai lable triazolam 0.25 mg tablet TAKE 2 TABLETS BY MOUTH 1 HOUR BEFORE APPOINTME NT 07/06 completed Not Available Not Available Not Available azithromyci n 250 mg tablet FPD 10/10 completed Not Available Not Available Not Available ibuprofen 800 mg tablet TK 1 T PO TID 10/10 completed Not Available Not Available Not Available clomiphene citrate 50 mg tablet TK 1 T PO D ON CYCLE DAYS 5 - 9 12/15 completed Not Available Not Available Not Available hydrocodone 5 mg-acetamin ophen 325 mg tablet TK 1 T PO Q 6 H PRN FOR PAIN 10/10 completed Not Available Not Available Not Available ondansetron HCl 4 mg tablet Take 1 tablet every 6 hours by oral route. 10/10 completed Not Available Not Available Not Available prednisone 20 mg tablet Take 2 tablets every day by oral route for 5 days. 07/05 completed Not Available Not Available Not Available phentermine 37.5 mg tablet TAKE 1 TABLET BY MOUTH EVERY DAY IN THE MORNING active Not Available Not Available No t Available levothyroxi ne 25 mcg tablet 12/16 completed Not Available Not Available Not Available progesteron e 50 mg/mL intramuscul ar oil 10/18 completed Not Available Not Available Not Available methylpredn isolone 8 mg tablet 12/16 completed Not Available Not Available Not Available levothyroxi ne 125 mcg tablet TAKE 1 TABLET BY MOUTH TWICE DAILY 12/16 completed Not Available Not Available Not Available misoprostol 200 mcg tablet INSERT 4 TS VAGINALLY UTD 10/10 completed Not Available Not Available Not Available levothyroxi ne 200 mcg tablet TAKE 1 TABLET BY MOUTH SOIL SURVEYOR BEFORE BREAKFAST ALONG WITH 25 MCG TABLET 11/23 completed Not Available Not Available Not Available ibuprofen 600 mg tablet TAKE 1 TABLET BY MOUTH EVERY 6 HOURS NEEDED FOR CRAMPS 10/19 completed Not Available Not Available Not Available albuterol sulfate HFA 90 mcg/actuati on aerosol inhaler INHALE 1 PUFF BY MOUTH EVERY 4 TO 6 HOURS NEEDED active Not Available Not Available No t Available leuprolide 1 mg/0.2 mL subcutaneou s kit 07/05 completed Not Available Not Available Not Available azithromyci n 500 mg tablet TAKE 2 TABLETS BY MOUTH ONCE FOR 1 DOSE. TAKE BOTH TABLETS AT THE SAME TIME DIRECTED 12/15 completed Not Available Not Available Not Available atomoxetine 40 mg capsule TK 1 C PO Q DAY 12/15 completed Not Available Not Available Not Available Menopur 75 unit subcutaneou s solution 10/18 completed Not Available Not Available Not Available lidocaine 2 % mucosal jelly in applicator APPLY EVERY 6 HOURS NEEDED FOR PAIN 07/05 completed Not Available Not Available Not Available levothyroxi ne 25 mcg capsule Take 1 capsule every day by oral route. 10/10 completed Not Available Not Available Not Available Nexplanon 68 mg subdermal implant Inject 1 implant by subcutane ous route. 05/09 completed Not Available Not Available Not Available Gonal-F RFF Redi-Ject 900 unit/1.5 mL subcutaneou s pen injector 07/05 completed Not Available Not Available Not Available Novarel 5,000 unit intramuscul ar solution 10/18 completed Not Available Not Available Not Available Vitals Date Recorded Body mass index (BMI) Body height Oxygen saturation Oxygen saturation in Arterial blood by Pulse oximetry Heart rate Body temperature Body weight Systolic blood pressure Diastolic blood pressure Provider Name and Address Organization Details Last Updated DateTime 3 31 kg/m2 177.8 cm 99 % 99 % 91 /min 97.3 [degF] 76053.9 5 g 116 mm[Hg] 78 mm[Hg] Not Available [facility] 3 20:02:19 Date Recorded Oxygen saturation Oxygen saturation in Arterial blood by Pulse oximetry Heart rate Body temperature Body weight Systolic blood pressure Diastolic blood pressure Provider Name and Address Organization Details Last Updated DateTime 1 99 % 99 % 95 /min 97.2 [degF] 92032.4 7 g 118 mm[Hg] 80 mm[Hg] Not Available [facility] 3 20:02:19 Date Recorded Body height Body temperature Body mass index (BMI) Body weight Respiratory rate Oxygen saturation Oxygen saturation in Arterial blood by Pulse oximetry Heart rate Systolic blood pressure Diastolic blood pressure Provider Name and Address Organization Details Last Updated DateTime 3 177.8 cm 97.2 [degF] 30.4 kg/m2 43660.5 8 g 16 /min 98 % 98 % 72 /min 128 mm[Hg] 72 mm[Hg] VANESSA Culver [place] [facility] 14:19:36 Social History Question Answer Notes LastModified by Organizat ion Details LastModified Time Tobacco Smoking Status Current Every Day Smoker Not Available [facility] 11/10/2022 20:01:56 What Is Your Level Of Caffeine Consumption? Moderate [id number] Information not available 11/10/2022 How Much Tobacco Do You Chew? None [id number] Information not available 11/10/2022 In The 14 Days Before Symptom Onset, Have You Had Close Contact With A Laboratory-confirm ed COVID-19 While That Case Was Ill? No [id number] Information not available 11/10/2022 In The 14 Days Before Symptom Onset, Have You Had Close Contact With A Person Who Is Under Investigation For COVID-19 While That Person Was Ill? No [id number] Information not available 11/10/2022 What Type Of Diet Are You Following? REGULAR [id number] Information not available 11/10/2022 Which Illicit Or Recreational Drugs Have You Used? None [id number] Information not available 11/10/2022 Have There Been Any Changes To Your Family Or Social Situation? No [id number] Information not available 11/10/2022 Are There Any Guns Present In Your Home? No [id number] Information not available 11/10/2022 Do You Use Insect Repellent Routinely? No [id number] Information not available 11/10/2022 Do You Use Your Seat Belt Or Car Seat Routinely? Yes [email or web address] Information not available 07/05/2023 At What Age Did You Start Smoking Tobacco? 15 [id number] Information not available 11/10/2022 How Much Tobacco Do You Smoke? 2 PPW MIGRATION.[id number] 2514 Information not available 11/10/2022 Do You Use Sunscreen Routinely? Yes [id number] Information not available 11/10/2022 Have You Recently Traveled Abroad? No MIGRATION.[id number] 1086 Information not available 11/10/2022 Do You Have Any Dietary Restrictions? No MIGRATION.[id number] 2158 Information not available 11/10/2022 Sex: Unknown Functional Status Question Answer Note LastModified by Organizat ion Details LastModified Time Do you use any illicit or recreational drugs? No [id number] Information not available 11/10/2022 Do you or have you ever used any other forms of tobacco or nicotine? No MIGRATION.[id number] 1501 Information not available 11/10/2022 What is your level of alcohol consumption? Moderate MIGRATION.[id number] 3910 Information not available 11/10/2022 Do you or have you ever used smokeless tobacco? Never used smokeless tobacco MIGRATION.[id number] 4787 Information not available 11/10/2022 Do you or have you ever used e-cigarettes or vape? Never used electronic cigarettes MIGRATION.[id number] 0613 Information not available 11/10/2022 What is your exercise level? Occasional [id number].[id number] 7313 Information not available 11/10/2022 Mental Status None recorded. Family History Relationship Description Onset Age of this Age Resolved Age Notes LastModified by Organization Details LastModified Time Mother Myocardial infarction patern al grandp arent [id number] Not available 11/10/2022 20:02:00 Father Malignant neoplasm of skin [id number] Not available 11/10/2022 20:02:00 Medical History Condition Response HEADACHES/MIGRAINES Y HYPOTHYROIDISM Y ASTHMA Y Gynecological History Statement/Question Response Menses Monthly Y Date of Last Pap 04/12/2019 Abnormal Pap N Duration of Flow (days) 5 Current Control Method None Date of LMP 12/06/2020 Sexually Active? Y Obstetrics History GPAL:G 0 P 0 0 0 0 Immunizations Vaccine Type Date Status Note Provider Nam e and Address Organization Details Recorded Time Tdap 8 completed Not Available [facility] 11/10/2022 20:04:28 TST-PPD intradermal 4 completed Not Available [facility] 11/10/2022 20:04:28 Past Encounters Encounter ID Performer Location Encounter Start Date Encounter Closed Date Diagnosis/Indication Diagnosis SNOMED-CT Code Diagnosis ICD10 Code Diagnosis Note [id number] HAWA Bradley [facility] [address] [place] [address] 12/16/2020 00:00:00 01/08/2021 08:59:24 [id number] HAWA Bradley [facility] [address] [place] [address] 10/19/2022 00:00:00 11/09/2022 18:37:43 [id number] HAWA Bradley [facility] [address] [place] [address] 07/06/2023 14:14:23 07/06/2023 14:51:07 Hypothyroidism 32493227 E03.9 On lower dose 175mcg daily levothyrox ine, due for updated TFT Cholesterol screening 27 7182556 Z13.220 fasting lipids due Diabetes m ellitus screening 894274804 Z13.1 screening a1c due Long-term drug therapy 785706204 Z79.899 CBC and CMP due Weight gain 9443004 R63. 5 pt would like course of phentermin e to help boost weight loss efforts. she has tolerated well in past. Health Concerns Section Related Observation LastModified by Organization Detai ls LastModified Time None Recorded Concern Status LastModified by Organization Details LastModified Time None Recorded Advance Directives Directive None Recorded Payers Encounter Date Sequence Insurance Name Policy Number Policy Shetty Covered Member ID Shetty Member ID Guarantor Name 07/06/2023 1 [facility] [id number] Julien Garcia [id number] Esther Garcia Notes Date Note Type Note Provider Name and Address Organization Details Recorded Time text/html HypothyroidReported bypatient.Associated Symptoms:no weakness; no lightheadedness; no fatigue; no cold intolerance; no constipation; no weight gain; no involuntary weight loss; normal mood; no menstrual irregularity; no pain; no dry/coarse skin; no edema; no deepening of the voice; no hoarseness; no goiter; no mass detected; no chest pain; no palpitations Treatment:taking medication as directedNotes:on supplement for thyroid. also going through fertility treatment. Not Available [place] [facility] [employer] 01/08/2021 08:59:24 3 text/html HypothyroidReported bypatient.Associated Symptoms:no weakness; no lightheadedness; no fatigue; no cold intolerance; no constipation; no weight gain; no involuntary weight loss; normal mood; no menstrual irregularity; no pain; no dry/coarse skin; no edema; no deepening of the voice; no hoarseness; no goiter; no mass detected; no chest pain; no palpitations Treatment:taking medication as directed Not Available [employer] 11/09/2022 18:37:43 3 text/html HypothyroidismReported bypatient.Quality:not changing Duration:constant Onset/Timing:still present Context/Risk:normal thyroid levels; no history of head or neck radiation during childhood; no history of thyroid disease; no history of hyperthyroidism; no excess iron exposure;history of hypothyroidism;female gender Modifying Factors:medication Exercisegets exercise Associated Symptoms:no cold intolerance; no heat intolerance; no weight loss; no weight gain; no double vision; no dry eyes; no hoarseness; no difficulty swallowing; no neck masses; no deepening of the voice; no fast heart rate; no increased blood pressure; no palpitations; no chest pain; no chest tightess or pressure; no constipation; no diarrhea; no vomiting; no decreased appetite; no loose stools; no irregular menstrual periods; no excessive sweating; no joint pain; no numbness; no tingling of the hands or feet; no dry skin; no tremor; no nervousness; no anxiety; no depression; no fatigue; no sleep difficulties; no skin changes; no hair changes HAWA Bradley [address], [address], [employer] 07/10/2023 08:55:37 OBGyn Episode No OBEpisode recorded.
--- OUTSIDE RECORDS SUMMARY | 2025-02-09 07:54 | XMS_ITS | Clinical Summary ---
Author Organization [facility] Address [address] [place] [address] Care Team Providers Care Distribution Agent Name Role Phone Leslie Eubanks Primary Care Pr ovider Leslie Eubanks Unavailable Allergies No known active allergies Medications albuterol HFA (PROVENTIL HFA,VENTOLIN HFA,PROAIR HFA) 90 mcg/actuation inhalerIndicati ons:Acute Asthma Attack Inhale 2 puffs every 6 (six) hours as needed for wheezing or shortness of breath Active levothyroxine (SYNTHROID) 200 mcg tablet Take 1 tablet (200 mcg total) by mouth daily 90 tablet 3 2 Active Additional Information Patient taking differently:200 mcg oralNightly, Indications: hypothyroidism, Informant: Self, Reported on 06/18/2024 Wegovy 0.5 mg/0.5 mL auto-injectorIn dications:Weigh t Loss Management for Obese Patient (BMI >= 30) Inject 0.5 mL (0.5 mg total) under the skin every 7 days Tuesday 4 Active multivitamin tabletIndicatio ns:Vitamin Deficiency Prevention Take 1 tablet by mouth plate gauger before breakfast Active acetaminophen (TYLENOL) 500 mg tablet Take 2 tablets (1,000 mg total) by mouth every 6 (six) hours 4 Active cyclobenzaprine (FLEXERIL) 10 mg tablet Take 1 tablet (10 mg total) by mouth 3 (three) times a day as needed for muscle spasms 21 tablet 4 Active oxyCODONE (ROXICODONE) 5 mg immediate release tabletIndicatio ns:Pain Take 1 tablet (5 mg total) by mouth every 4 (four) hours as needed for pain 10 tablet 4 Active oxyCODONE (ROXICODONE) 5 mg immediate release tabletIndicatio ns:Pain Take 1 tablet (5 mg total) by mouth every 4 (four) hours as needed for pain for up to 12 doses 12 tablet 4 Active naloxone (NARCAN) 4 mg/actuation spray,non-aeros ol Administer 1 spray into affected nostril(s) as needed for opioid reversal or respiratory depression Call 911. Administer a single spray in one nostril. Repeat every 3 minutes as needed if no or minimal response. 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 Surgical History Surgery Date Site/Laterality Comments TOTAL THYROIDECTOMY 09/12/2001 - 09/11/2002 Graves disease AUGMENTATION MAMMOPLASTY 09/12/2005 - 09/11/2006 D&C FIRST TRIMESTER / TX INCOMPLETE / MISSED / SEPTIC / INDUCED 09/12/2018 - 09/11/2019 WISDOM TOOTH EXTRACTION 09/12/1999 - 09/11/2000 HYSTEROSCOPY 03/11/2020 OTHER SURGICAL HISTORY 09/12/2020 - 09/11/2021 IVF Egg Retrieval Medical History Medical History Date Comments Abnormal uterine bleeding Hypothyroidism history of Grave s PONV (postoperative nausea and vomiting) nausea Migraines Asthma rare use rescue inhaler History of Graves' disease s/p t hyroidectomy Family History Medical History Relation Name Comments Diabetes type II Father Stroke Father Skin cancer Father's Brother Heart disease Maternal Grandfather Emphysema Maternal Grandmother Heart attack Mother Heart disease Mother Skin cancer Paternal Grandmother No Known Problems Sister 1 No Known Problems Sister 2 Relation Name Status Comments Father Alive Father's Brother Maternal Grandfather Maternal Grandmother Mother Alive Paternal Grandfather Paternal Grandmother Sister 1 Alive Sister 2 Alive Social History Tobacco Use Types Packs/Day Years Used Date Smoking Tobacco: Former Cigarettes 0.5 25 1 996 - 2020 Smokeless Tobacco: Never Tobacco Cessation:Counseling Given: Not Answered Alcohol Use Standard Drinks/Week Comments Yes 12 (1 standard drink = 0.6 oz pu re alcohol) AUDIT-C Answer Date Recorded Q1: How often do you have a drink containing alc ohol? 2-3 times a week 07/06/2024 Q2: How many drinks containi ng alcohol do you have on a typical day when you are drinking? 1 or 2 07/06/2024 Q3: How often do you have si x or more drinks on one occasion? Never 07/06/2024 Exercise Vital Sign Answer Date Recorde d On average, how many days pe r week do you engage in moderate to strenuous exercise (like a brisk walk)? 4 days 02/13/2020 On average, how many minutes do you engage in exercise at this level? 40 min 02/13/2020 Personal Safety Answer Date Recorded Have you ever been in or are you currently in a harmful physical or emotional relationship or is someone making you feel afraid or unsafe? Denies 07/06/2024 Comments Unknown Sex and Gender Information Value Date Recorded Sex Assigned at Not on file Legal Sex Female 6:44 AM DINKEY LOCOMOTIVE OPERATOR Gender Identity Not on file Sexual Orientation Not on file Obstetrics History Para Term AB IAB SAB Ectopic Multiple Livin g Live Births 3 3 3 1 Date Outcome GA Total Labor Labor/2nd/3rd Weight Sex Type Anes PTL Shweta A1 A5 Name Clin 019 SAB D&C 020 SAB SAB 020 SAB 020 SAB Comments G1: conceived spontaneously; 7 week no CM G2: Conceived with Clomid, no ultrasound ~6 week G3: Twin conception, SAB. POC c/w triploidy in at least one twin Last Filed Vital Signs Vital Sign Reading Time Taken Comments Blood Pressure 113/84 07/06/2024 4:30 PM CDT Pulse 94 07/06/2024 4:30 PM CDT Temperature 36.3 C (97.3 F) 07/06/2024 2:10 PM CDT Respiratory Rate 16 07/06/2024 4:30 PM CDT Oxygen Saturation 95% 07/06/2024 4:30 PM CDT Inhaled Oxygen Concentration - - Weight 93.4 kg (206 lb) 07/06/2024 9:00 AM CDT Height 177.8 cm (5' 10) 07/06/2024 9:00 AM CDT Body Mass Index 29.56 07/06/2024 9:00 AM CDT Plan of Treatment Health Maintenance Due Date Last Done Comments Breast Cancer Screening-Mammogram 1980 Cervical Cancer Screening 1980 Depression Screening 1980 DTaP/Tdap/Td Vaccine (1 - Tdap) 1991 Varicella Vaccines (1 of 2 - 13+ 2-dose series) 1993 Hepatitis B Screening 1998 Regular Well Visit/Exam 18-64 1998 Covid-19 Vaccine (2023-2 5 season) 2024 07/17/2021, 12/18/2020, 11/27/2020 Influenza Vaccine (Season Ended) 2025 Hepatitis C Screening Completed 08/18/2020 HPV Vaccines Aged Out No longer eligi ble based on patient's age to complete this topic Pneumococcal vaccine <65 Aged Out No longer eligible based on patient's age to complete this topic Medical Devices Explanted Type Area Senior Java [id number] Developer Device Identifier Shelf Expiration Date Model / Serial / Lot Breast Implant Explanted:Qty: 1 on 07/06/2024 by Shanice Roque MD at [facility] Breast Bilateral: Breast Other [id number] / / Description:Not implanted he re at [place]. Procedures Procedure Name Priority Date/Time Associated Diagnosis Comments HEPATITIS C ANTIBODY Routine 08/18/2020 11:13 AM DINKEY LOCOMOTIVE OPERATOR Encounter for screening for infections with predominantly sexual mode of transmission from Last 3 Months or Most Recently Relevant to Health Maintenance Results * Hepatitis C antibody (08/18/2020 11:13 AM DINKEY LOCOMOTIVE OPERATOR) Hep C Ab Nonreactive Nonreactive [facility] Comment:Antibodies to HCV no t detected. Does NOT exclude the possibility of recent exposure to HCV. Blood specimen (specimen) 08/18/2020 11:13 AM DINKEY LOCOMOTIVE OPERATOR 08/18/2020 6:07 PM DINKEY LOCOMOTIVE OPERATOR Cindy Gaytan MD LAB MICROBIO LOGY - GENERAL ORDERABLES Edited Result - Final [facility] Department [place] [address] from Last 3 Months or Most Recently Relevant to Health Maintenance Insurance [facility] CHOICE PLUS [facility] HMO [facility] [employer] Advance Directives For more information, please contact: [phone] * Full Code (Latest Code Status on File) Date Activated Date Inactivated Comments 11/15/2020 6:35 AM 11/16/2020 12:22 PM * Full Code Date Activated Date Inactivated Comments 07/03/2020 6:49 AM 07/04/2020 4:50 AM * Full Code Date Activated Date Inactivated Comments 03/11/2020 12:15 PM 03/11/2020 4:58 PM Care Teams Distribution Agent Relationship Specialty Start Date End Date Leslie Eubanks PA PCP - General Physician Sewage Treatment Plant Operator 10/02/20 Leslie Eubanks PA Physician Sewage Treatment Plant Operator 10/02/20
--- OUTSIDE RECORDS SUMMARY | 2025-02-09 07:54 | XMS_ITS | Referral Summary ---
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 Social History Tobacco Use Types Packs/Day Years Used Date Smoking Tobacco: Former Cigarettes 0.5 25 1 6 - 2020 Smokeless Tobacco: Never Tobacco Cessation:Counseling [...] on file Legal Sex Female 6:44 AM BROILER SUPERVISOR Gender Identity Not on file Sexual Orientation Not on file Last Filed Vital Signs Vital Sign Reading [...] 07/06/2024 9:00 AM CDT Plan of Treatment Not on file Medical Devices Explanted Type Area Supervisor Telephone Answering Service Device Identifier Shelf Expiration Date Model / Serial / Lot Breast Implant Explanted:Qty: 1 on 07/06/2024 by Shanice Roque MD at [facility] Breast Bilateral: Breast Other [id number] / / Description:Not implanted he re at [place]. Procedures Procedure Name Priority Date/Time Associated Diagnosis Comments HEPATITIS C ANTIBODY Routine 08/18/2020 11:13 AM BROILER SUPERVISOR Encounter for screening for infections with predominantly sexual mode of transmission from Last 3 Months or Most Recently Relevant to Health Maintenance Results * Hepatitis C antibody (08/18/2020 11:13 AM BROILER SUPERVISOR) Hep C Ab Nonreactive Nonreactive [facility] Comment:Antibodies to HCV no t detected. Does NOT exclude the possibility of recent exposure to HCV. Blood specimen (specimen) 08/18/2020 11:13 AM BROILER SUPERVISOR 08/18/2020 6:07 PM BROILER SUPERVISOR us Cindy Gaytan MD LAB MICROBIO LOGY - GENERAL ORDERABLES Edited Result - Final [facility] Department [place] [address] from Last 3 Months or Most Recently Relevant to Health Maintenance Insurance [facility] CHOICE PLUS [facility] HMO [facility] [employer] Advance Directives For more information, please contact: [phone] * Full Code (Latest Code Status on File) Date Activated Date Inactivated Comments 11/15/2020 6:35 AM 11/16/2020 12:22 PM * Full Code Date Activated Date Inactivated Comments 07/03/2020 6:49 AM 07/04/2020 4:50 AM * Full Code Date Activated Date Inactivated Comments 03/11/2020 12:15 PM 03/11/2020 4:58 PM Care Teams Meeting Specialist Relationship Specialty Start Date End Date Leslie Eubanks PA PCP - General Physician Molding Engineer 10/02/20 Leslie Eubanks PA Physician Molding Engineer 10/02/20
--- OUTSIDE RECORDS SUMMARY | 2025-02-09 07:54 | XMS_ITS | Data Portability ---
[facility] Organization [facility] 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 Plan of Treatment Reminders Order Date Submit Date Provider Last Modified By Organization Details Last Modified Time Details Appointments ANY 15 2024 03:15P M HAWA Bradley Not available Not available Not available Lab CMP, serum or plasma 2024 025 [email or web address] [facility], [address] [place] [address], [id number], 01/29/2025 14:26:21 CBC w/ auto diff 2024 025 [email or web address] [facility], [address] [place] [address], [id number], 01/29/2025 14:26:21 vitamin B12 + folate, serum or blood 2024 025 [email or web address] [facility], [address] [place] [address], [id number], 01/29/2025 14:26:21 lipid panel, serum 2024 025 [email or web address] [facility], [address] [place] [address], [id number], 01/29/2025 14:26:21 cobalamin and folate panel, serum 2024 025 [email or web address] [facility], [address] [place] [address] [place], [address], 01/29/2025 14:26:22 vitamin D, 25-hydrox y, total, serum 2024 025 [email or web address], [address] [place] [address], [place], [address], 01/29/2025 14:26:22 HbA1c (hemoglob in A1c), blood 2024 025 [email or web address] [facility], [address] [place] [address], [place], [address], 01/29/2025 14:26:22 TSH + free T4, serum 2024 025 [email or web address], [address] [place] [address], [place], [address], 01/29/2025 14:26:21 T3, free, serum or plasma 2024 025 [email or web address], [address] [place] [address], [place], [address], 01/29/2025 14:26:21 lipid panel, serum 2023 024 M[facility], [address] [place] [address], [place], [address], 02/18/2024 08:31:10 CMP, serum or plasma 2023 024 M[facility], [address] [place] [address], [place], [address], 02/18/2024 08:31:12 CBC w/ auto diff 2023 024 M[facility], [address] [place] [address], [place], [address], 02/18/2024 08:31:15 vitamin B12 + folate, serum or blood 2023 024 M[facility], [address] [place] [address], [place], [address], 02/18/2024 08:31:13 HbA1c (hemoglob in A1c), blood 2023 024 [facility], [address] [place] [address] 2, [place], [address], 02/18/2024 08:31:14 TSH + free T4, serum 2023 024 [facility], [address] [place] [address] 2, [place], [address], 02/18/2024 08:31:11 T3, free, serum or plasma 2023 024 [facility], [address] [place] [address] 2, [place], [address], 02/18/2024 08:31:16 Referral None recorded. Procedures None recorded. Surgeries None recorded. Imaging None recorded. Medication Orders atomoxeti ne 25 mg capsule 2024 025 [id number], [address] [place], [place], [id number], 12/18/2024 15:26:44 Wegovy 0.5 mg/0.5 mL subcutane ous pen injector 2024 025 [facility] #[id number], [address], [place], [id number], 12/18/2024 15:23:42 Patient TargetsNo targets recorded. Patient Instructions Encounter Date Encounter Id Patient Instructions Last Modified By Organization Details Last Modified Time 01/27/2024 [id number] A healthy lifestyle: care instructions [email or web address] Not available 02/12/2024 21:08:17 Reason for Referral None Reported. Results Created Date Observation Date Name Description Value Unit Range Abnormal Flag Note LastModifiedBy Organization Detail LastModifiedTime 02/17/20 24 02/18/2024 LIPID PANEL W/ CHOL/ HDL RATIO cholesterol, total 175 mg/dL 100-19 9 Not Available [facility] [address] [place], [address], 02/18/2024 08:31:10 02/17/20 24 02/18/2024 LIPID PANEL W/ CHOL/ HDL RATIO triglyceride s 125 mg/dL 0-149 Not Available [facility] [address] [place], [address], 02/18/2024 08:31:10 02/17/20 24 02/18/2024 LIPID PANEL W/ CHOL/ HDL RATIO HDL cholesterol 47 mg/dL >39 Not Available [facility] [address] [place], [address], 02/18/2024 08:31:10 02/17/20 24 02/18/2024 LIPID PANEL W/ CHOL/ HDL RATIO VLDL cholesterol cade 22 mg/dL 5-40 Not Available [facility] [address] [place], [address], 02/18/2024 08:31:10 02/17/20 24 02/18/2024 LIPID PANEL W/ CHOL/ HDL RATIO LDL chol calc ([facility]) 106 mg/dL 0-99 above high normal Not Available [facility] [address] [place], [address], 02/18/2024 08:31:10 02/17/20 24 02/18/2024 LIPID PANEL W/ CHOL/ HDL RATIO T. chol/HDL ratio 3.7 ratio 0.0-4. 4 T. Chol/ HDL Ratio Men Women 1/2 Avg.R isk 3.4 3.3 Avg.R isk 5.0 4.4 2X Avg.R isk 9.6 7.1 3X Avg.R isk 23.4 11.0 Not Available [facility] [address] [place], [address], 02/18/2024 08:31:10 02/17/20 24 02/18/2024 TSH+F REE T4 TSH 7.510 uIU/m L 0.450- 4.500 above high normal Not Available [facility] [address] [place], [address], 02/18/2024 08:31:11 02/17/20 24 02/18/2024 TSH+F REE T4 T4,free(dire ct) 1.18 NG/dL 0.82-1 .77 Not Available [facility] [address] [place], [address], 02/18/2024 08:31:11 02/17/20 24 02/18/2024 COMP. METAB OLIC PANEL (14) glucose 97 mg/dL 70-99 Not Available [facility] [address] [place], [address], 02/18/2024 08:31:12 02/17/20 24 02/18/2024 COMP. METAB OLIC PANEL (14) BUN 11 mg/dL 6-24 Not Available [facility] [address] [place], [address], 02/18/2024 08:31:12 02/17/20 24 02/18/2024 COMP. METAB OLIC PANEL (14) creatinine 0.71 mg/dL 0.57-1 .00 Not Available [facility] [address] [place], [address], 02/18/2024 08:31:12 02/17/20 24 02/18/2024 COMP. METAB OLIC PANEL (14) eGFR 108 mL/mi n/1.7 3 >59 Not Available [facility] [address] [place], [address], 02/18/2024 08:31:12 02/17/20 24 02/18/2024 COMP. METAB OLIC PANEL (14) BUN/creatini ne ratio 15 9-23 Not Available [facility] [address] [place], [address], 02/18/2024 08:31:12 02/17/20 24 02/18/2024 COMP. METAB OLIC PANEL (14) sodium 138 mmol/ L 134-14 4 Not Available [facility] [address] [place], [address], 02/18/2024 08:31:12 02/17/20 24 02/18/2024 COMP. METAB OLIC PANEL (14) potassium 4.7 mmol/ L 3.5-5. 2 Not Available [facility] [address] [place], [address], 02/18/2024 08:31:12 02/17/20 24 02/18/2024 COMP. METAB OLIC PANEL (14) chloride 105 mmol/ L 96-106 Not Available [facility] [address] [place], [address], 02/18/2024 08:31:12 02/17/20 24 02/18/2024 COMP. METAB OLIC PANEL (14) carbon dioxide, total 22 mmol/ L 20-29 Not Available [facility] [address] [place], [address], 02/18/2024 08:31:12 02/17/20 24 02/18/2024 COMP. METAB OLIC PANEL (14) calcium 8.7 mg/dL 8.7-10 .2 Not Available [facility] [address] [place], [address], 02/18/2024 08:31:12 02/17/20 24 02/18/2024 COMP. METAB OLIC PANEL (14) protein, total 6.2 g/dL 6.0-8. 5 Not Available [facility] [address] [place], [address], 02/18/2024 08:31:12 02/17/20 24 02/18/2024 COMP. METAB OLIC PANEL (14) albumin 4.2 g/dL 3.9-4. 9 Not Available [facility] [address] [place], [address], 02/18/2024 08:31:12 02/17/20 24 02/18/2024 COMP. METAB OLIC PANEL (14) globulin, total 2.0 g/dL 1.5-4. 5 Not Available [facility] [address] [place], [address], 02/18/2024 08:31:12 02/17/20 24 02/18/2024 COMP. METAB OLIC PANEL (14) A/G ratio 2.1 1.2-2. 2 Not Available [facility] [address] [place], [address], 02/18/2024 08:31:12 02/17/20 24 02/18/2024 COMP. METAB OLIC PANEL (14) bilirubin, total 0.5 mg/dL 0.0-1. 2 Not Available [facility] [address] [place], [address], 02/18/2024 08:31:12 02/17/20 24 02/18/2024 COMP. METAB OLIC PANEL (14) alkaline phosphatase 53 IU/L 44-121 Not Available [facility] [address] [place], [address], 02/18/2024 08:31:12 02/17/20 24 02/18/2024 COMP. METAB OLIC PANEL (14) AST (SGOT) 10 IU/L 0-40 Not Available [facility] [address] [place], [address], 02/18/2024 08:31:12 02/17/20 24 02/18/2024 COMP. METAB OLIC PANEL (14) ALT (SGPT) 13 IU/L 0-32 Not Available [facility] [address] [facility], [place], [address], 02/18/2024 08:31:12 02/17/20 24 02/18/2024 VITAM IN B12 AND FOLAT E vitamin B12 458 pg/mL 232-12 45 Not Available [facility] [address] [facility], [place], [address], 02/18/2024 08:31:13 02/17/20 24 02/18/2024 VITAM IN B12 AND FOLAT E folate (folic acid), serum 16.7 NG/mL >3.0 A serum folat e kirstin ntrat ion of less than 3.1 ng/mL is consi dered to repre sent clini cade defic iency . Not Available [facility] [address] [facility], [place], [address], 02/18/2024 08:31:13 02/17/20 24 02/18/2024 HEMOG LOBIN A1C hemoglobin A1C 5.5 % 4.8-5. 6 Predi abete s: 5.7 - 6.4 Diabe chandler: >6.4 Glyce luis fernando contr ol for adult s with diabe chandler: <7.0 Not Available [facility] [address] [facility], [place], [address], 02/18/2024 08:31:14 02/17/20 24 02/18/2024 CBC WITH DIFFE RENTI AL/PL ATELE T WBC 4.8 x10e3 /uL 3.4-10 .8 Not Available [facility] [address] [facility], [place], [address], 02/18/2024 08:31:15 02/17/20 24 02/18/2024 CBC WITH DIFFE RENTI AL/PL ATELE T RBC 4.61 x10e6 /uL 3.77-5 .28 Not Available [facility] [address] [facility], [place], [address], 02/18/2024 08:31:15 02/17/20 24 02/18/2024 CBC WITH DIFFE RENTI AL/PL ATELE T hemoglobin 14.3 g/dL 11.1-1 5.9 Not Available [facility] [address] [facility], [place], [address], 02/18/2024 08:31:15 02/17/2002/18/2024 CBC WITH DIFFE RENTI AL/PL ATELE T hematocrit 42.6 % 34.0-4 6.6 Not Available [facility] [address] [facility], [place], [address], 02/18/2024 08:31:15 02/17/2002/18/2024 CBC WITH DIFFE RENTI AL/PL ATELE T MCV 92 fL 79-97 Not Available [facility] [address] [place], [address], 02/18/2024 08:31:15 02/17/2002/18/2024 CBC WITH DIFFE RENTI AL/PL ATELE T MCH 31.0 pg 26.6-3 3.0 Not Available [facility] [address] [place], [address], 02/18/2024 08:31:15 02/17/2002/18/2024 CBC WITH DIFFE RENTI AL/PL ATELE T MCHC 33.6 g/dL 31.5-3 5.7 Not Available [facility] [address] [place], [address], 02/18/2024 08:31:15 02/17/20 24 02/18/2024 CBC WITH DIFFE RENTI AL/PL ATELE T RDW 12.2 % 11.7-1 5.4 Not Available [facility] [address] [facility], [place], [address], 02/18/2024 08:31:15 02/17/20 24 02/18/2024 CBC WITH DIFFE RENTI AL/PL ATELE T platelets 288 x10e3 /uL 150-45 0 Not Available [facility] [address] [facility], [place], [address], 02/18/2024 08:31:15 02/17/20 24 02/18/2024 CBC WITH DIFFE RENTI AL/PL ATELE T neutrophils 57 % notest ab. Not Available [facility] [address] [facility], [place], [address], 02/18/2024 08:31:15 02/17/20 24 02/18/2024 CBC WITH DIFFE RENTI AL/PL ATELE T lymphs 31 % notest ab. Not Available [facility] [address] [facility], [place], [address], 02/18/2024 08:31:15 02/17/20 24 02/18/2024 CBC WITH DIFFE RENTI AL/PL ATELE T monocytes 6 % notest ab. Not Available [facility] [address] [facility], [place], [address], 02/18/2024 08:31:15 02/17/20 24 02/18/2024 CBC WITH DIFFE RENTI AL/PL ATELE T eos 5 % notest ab. Not Available [facility] [address] [facility], [place], [address], 02/18/2024 08:31:15 02/17/20 24 02/18/2024 CBC WITH DIFFE RENTI AL/PL ATELE T basos 1 % notest ab. Not Available [facility] [address] [facility], [place], [address], 02/18/2024 08:31:15 02/17/20 24 02/18/2024 CBC WITH DIFFE RENTI AL/PL ATELE T neutrophils (absolute) 2.8 x10e3 /uL 1.4-7. 0 Not Available [facility] [address] [facility], [place], [address], 02/18/2024 08:31:15 02/17/20 24 02/18/2024 CBC WITH DIFFE RENTI AL/PL ATELE T lymphs (absolute) 1.5 x10e3 /uL 0.7-3. 1 Not Available [facility] [address] [facility], [place], [address], 02/18/2024 08:31:15 02/17/20 24 02/18/2024 CBC WITH DIFFE RENTI AL/PL ATELE T monocytes(ab solute) 0.3 x10e3 /uL 0.1-0. 9 Not Available [facility] [address] [facility], [place], [address], 02/18/2024 08:31:15 02/17/20 24 02/18/2024 CBC WITH DIFFE RENTI AL/PL ATELE T eos (absolute) 0.2 x10e3 /uL 0.0-0. 4 Not Available [facility] [address] [facility], [place], [address], 02/18/2024 08:31:15 02/17/20 24 02/18/2024 CBC WITH DIFFE RENTI AL/PL ATELE T baso (absolute) 0.0 x10e3 /uL 0.0-0. 2 Not Available [facility] [address] [facility], [place], [address], 02/18/2024 08:31:15 02/17/20 24 02/18/2024 CBC WITH DIFFE RENTI AL/PL ATELE T immature granulocytes 0 % notest ab. Not Available [facility] [address] [place], [address], 02/18/2024 08:31:15 02/17/20 24 02/18/2024 CBC WITH DIFFE RENTI AL/PL ATELE T immature grans (abs) 0.0 x10e3 /uL 0.0-0. 1 Not Available [facility] [address] [place], [address], 02/18/2024 08:31:15 02/17/20 24 02/18/2024 TRIIO DOTHY PRASAD E (T3), FREE triiodothyro nine (T3), free 2.1 pg/mL 2.0-4. 4 Not Available [facility] [address] [place], [address], 02/18/2024 08:31:16 07/20/20 24 07/21/2024 TSH+F REE T4 TSH 0.028 uIU/m L 0.450- 4.500 below low normal Not Available [facility] [address] [place], [address], 07/21/2024 08:23:44 07/20/20 24 07/21/2024 TSH+F REE T4 T4,free(dire ct) 1.80 NG/dL 0.82-1 .77 above high normal Not Available [facility] [address] [place], [address], 07/21/2024 08:23:44 07/20/20 24 07/21/2024 TRIIO DOTHY PRASAD E (T3), FREE triiodothyro nine (T3), free 2.8 pg/mL 2.0-4. 4 Not Available [facility] [address] [place], [address], 07/21/2024 08:23:45 01/13/20 24 01/13/2024 MAMMO , venkate verona, digit al, bilat eral No observ ation record ed. [email or web address] [facility] [address], [place], [address], 01/14/2024 19:39:30 Result Notes None recorded. Problems Name Problem SNOMED Code Status Onset Date Resolution Date Notes Provider Name and Address Organization Details Recorded Time Long-term drug therapy Active 2023 HAWA Bradley Attn: Accountin g,[address] [facility], [place], [address], [facility] - [facility] 4 21:07:41 Obesity 153333547 Active 2023 HAWA Bradley Attn: Accountin g,[address] [facility], [place], [address], [facility] - SI 4 21:08:18 Body mass index 30+ - obesity 759351091 Active 2023 HAWA Bradley Attn: Accountin g,[address] [facility], [place], [address], [facility] - [facility]IF 4 21:08:18 Hypothyroidism 18099619 Active 2023 HAWA Bradley Attn: Accountin g,[address] [facility], [place], [address], 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 - [facility] 5 20:36:09 Problem Notes None recorded. Procedures Surgical History Date Name Laterality Status Provider Name and Address Organization Details Recorded Time revision of breast implant completed Polo Lizarraga [place] [facility] 12/18/2024 15:00:35 D & c after delivery completed Polo Lizarraga [place] - [facility] 01/27/2024 12:00:28 Imaging Results None recorded. Procedure Notes None recorded. Medical Equipment None Reported. Allergies No known drug allergies Medications Name Sig Start Date Stop Date Status Note LastModified by Organization Details LastModified Time cyclobenzap rine 10 mg tablet Take 1 tablet as needed by oral route for 7 days. active Not Available Not Available No t Available levothyroxi ne 175 mcg tablet TAKE 1 TABLET BY MOUTH EVERY DAY IN THE MORNING active Not Available Not Available No t Available doxycycline hyclate 100 mg capsule 08/17 completed Not Available Not Available Not Available azithromyci n 250 mg tablet TAKE 2 TABLETS BY MOUTH ON DAY 1, AND THEN TAKE 1 TABLET BY MOUTH ONCE A DAY ON DAY 2 THROUGH DAY 5 12/18 completed Not Available Not Available Not Available metronidazo le 500 mg tablet TAKE 1 TABLET BY MOUTH TWICE DAILY FOR 7 DAYS 01/26 completed Not Available Not Available Not Available phentermine 37.5 mg tablet TAKE 1 TABLET BY MOUTH EVERY DAY IN THE MORNING 08/17 completed Not Available Not Available Not Available alprazolam 0.25 mg tablet Take 1 tablet 3 times a day by oral route as needed, for plane travel. active Not Available Not Available No t Available levothyroxi ne 200 mcg tablet TAKE 1 TABLET BY MOUTH EVERY DAY 07/23 completed Not Available Not Available Not Available albuterol sulfate HFA 90 mcg/actuati on aerosol inhaler INHALE 1 PUFF BY MOUTH EVERY 4 TO 6 HOURS NEEDED active Not Available Not Available No t Available oxycodone 5 mg tablet TAKE 1 TABLET BY MOUTH EVERY 4 HOURS NEEDED 08/17 completed Not Available Not Available Not Available atomoxetine 25 mg capsule TAKE 1 CAPSULE BY MOUTH EVERY DAY active Not Available Not Available No t Available naloxone 4 mg/actuatio n nasal spray CALL 911. SPR CONTENTS OF ONE SPRAYER (0.1ML) INTO ONE NOSTRIL. REPEAT IN 2-3 MIN IF SYMPTOMS OF OPIOID EMERGENCY PERSIST, ALTERNATE NOSTRILS 08/17 completed Not Available Not Available Not Available levothyroxi ne 200 mcg capsule TAKE 1 CAPSULE BY MOUTH EVERY DAY IN THE MORNING active Not Available Not Available No t Available Wegovy 1 mg/0.5 mL subcutaneou s pen injector Inject 1 mg every week by subcutane ous route. 10/03 completed Not Available Not Available Not Available Wegovy 0.25 mg/0.5 mL subcutaneou s pen injector ADMINISTE R 0.25 MG UNDER THE SKIN EVERY WEEK DIRECTED 07/23 completed Not Available Not Available Not Available Wegovy 0.5 mg/0.5 mL subcutaneou s pen injector Inject by subcutane ous route for 28 days. 2024 active Not Available Not Available Not Avai lable Vitals Date Recorded Systolic blood pressure Diastolic blood pressure Provider Name and Address Organization Details Last Updated DateTime 12/18/2024 120 mm[Hg] 80 mm[Hg] HAWA Bradley Attn: Accounting,[address] [place], [address], [facility] 12/18/2024 15:25:28 Date Recorded Body height Body mass index (BMI) Body weight Respiratory rate Oxygen saturation Oxygen saturation in Arterial blood by Pulse oximetry Heart rate Systolic blood pressure Diastolic blood pressure Provider Name and Address Organization Details Last Updated DateTime 5 177.8 cm 30 kg/m2 54916.8 1 g 20 /min 98 % 98 % 68 /min 118 mm[Hg] 82 mm[Hg] Polo Lizarraga MA [facility] 5 15:02:18 Date Recorded Body height Body mass index (BMI) Body weight Respiratory rate Oxygen saturation Oxygen saturation in Arterial blood by Pulse oximetry Heart rate Systolic blood pressure Diastolic blood pressure Provider Name and Address Organization Details Last Updated DateTime 4 177.8 cm 30.5 kg/m2 24505.6 6 g 20 /min 99 % 99 % 74 /min 116 mm[Hg] 82 mm[Hg] Polo Lizarraga MA [facility] 4 11:26:41 Social History Question Answer Notes LastModified by Organizat ion Details LastModified Time Tobacco Smoking Status Former Smoker quit 3 years ago Polo Lizarraga MA [facility], [place] - [facility] 01/26/2024 10:13:00 Do You Have An Advance Directive? No Information not available 01/26/2024 Are You Blind Or Do You Have Difficulty Seeing? No Information not available 01/26/2024 What Is Your Level Of Caffeine Consumption? Moderate Information not available 01/26/2024 In The 14 Days Before Symptom Onset, Have You Had Close Contact With A Laboratory-confir med COVID-19 While That Case Was Ill? No Information not available 01/26/2024 In The 14 Days Before Symptom Onset, Have You Had Close Contact With A Person Who Is Under Investigation For COVID-19 While That Person Was Ill? No Information not available 01/26/2024 Have You Been To An Area Known To Be High Risk For COVID-19? No Information not available 01/26/2024 Are You Deaf Or Do You Have Serious Difficulty Hearing? No Information not available 01/26/2024 What Type Of Diet Are You Following? REGULAR Information not available 01/26/2024 Are There Any Guns Present In Your Home? No Information not available 01/26/2024 What Was The Date Of Your Most Recent Tobacco Screening? 12/18/2024 Information not available 12/18/2024 What Is Your Current Pack Years? 20-29packyea rs Information not available 01/26/2024 What Is Your Relationship Status? Information not available 01/26/2024 Do You Use Your Seat Belt Or Car Seat Routinely? Yes Information not available 01/26/2024 Do You Have Smoke And Carbon Monoxide Detectors In Your Home? Yes Information not available 01/26/2024 How Much Tobacco Do You Smoke? No Information not available 01/26/2024 Do You Use Sunscreen Routinely? Yes Information not available 01/26/2024 Has Tobacco Cessation Counseling Been Provided? Yes Information not available 01/26/2024 On What Date Was Tobacco Cessation Counseling Provided? 12/18/2024 Information not available 12/18/2024 Sex: Female Functional Status Question Answer Note LastModified by Organizat ion Details LastModified Time Do you use any illicit or recreational drugs? No Information not available 01/26/2024 Do you or have you ever used any other forms of tobacco or nicotine? No Information not available 01/26/2024 What is your level of alcohol consumption? Moderate Information not available 01/26/2024 Are you able to care for yourself? Yes Information n ot available 01/26/2024 What is your exercise level? Occasional Information not available 01/26/2024 Mental Status None recorded. Family History Relationship Description Onset Age of this Age Resolved Age Notes LastModified by Organization Details LastModified Time Father Cerebrovascu lar accident [email or web address] Not available 12:00:48 Father Dementia [email or web address] Not availabl e 01/27/2024 12:00:53 Father Hypertensive disorder [email or web address] Not available 2023 12:01:04 Father Hypercholest erolemia tcarterma Not available 2023 12:01:08 Mother Heart disease [email or web address] Not available 2023 12:00:59 Mother Myocardial infarction tcarterma Not available 01/26 12:01:14 Medical History Condition Response Coronary Artery Disease N Other N Atrial Fibrillation N High Blood Pressure N Depression N COPD N Blood Clots N Anxiety Disorder N Muscle, Joint, or Bone Problems N Acid Reflux (GERD) N Cancer N Stroke N High Cholesterol N Liver Disease N Headaches N Kidney or Bladder Problems N Thyroid Problems Y GI Problems N Skin Problems N Anemia N Heart Attack ([place]) N Diabetes N Seizures/Epilepsy N Asthma N Allergies N Hepatitis N Osteoporosis N Heart Failure N Gynecological History Statement/Question Response Menses Monthly Y Current Control Method None Flow Moderate Date of LMP 11/28/2024 LMP Approximate Obstetrics History GPAL:G 4 P 1 0 0 1 Type Value Full Term 1 Induced 0 Spontaneous 0 Premature 0 Living 1 Total 4 Immunizations Vaccine Type Date Status Note Provider Nam e and Address Organization Details Recorded Time COVID-19, mRNA, LNP-S, PF, 30 mcg/0.3 mL dose 11/27/2020 completed TRISHA [place], [place] - [facility] 12/18/2024 14:59:32 COVID-19, mRNA, LNP-S, PF, 30 mcg/0.3 mL dose 12/18/2020 completed Polo Lizarraga MA [facility], [place] - [facility] 12/18/2024 14:59:32 COVID-19, mRNA, LNP-S, PF, 30 mcg/0.3 mL dose 07/17/2021 completed TRISHA [place] - [facility] 12/18/2024 14:59:32 COVID-19, mRNA, LNP-S, PF, 30 mcg/0.3 mL dose, misael-sucrose 02/10/2022 completed TRISHA [place] [facility] 12/18/2024 14:59:32 COVID-19, mRNA, LNP-S, bivalent, PF, 30 mcg/0.3 mL dose 08/17/2022 completed TRISHA [place] [facility] 12/18/2024 14:59:32 Tdap 02/10/2022 completed Polo Lizarraga [place] [facility] 12/18/2024 14:59:32 Influenza, split virus, quadrivalent, PF 08/17/2022 completed Polo Lizarraga [place] [facility] 12/18/2024 14:59:32 Past Encounters Encounter ID Performer Location Encounter Start Date Encounter Closed Date Diagnosis/Indication Diagnosis SNOMED-CT Code Diagnosis ICD10 Code Diagnosis Note [id number] Ugo Matias MD [facility] - [employer] [address] [place] [address] 01/27/2024 11:18:12 01/27/2024 14:25:28 Hypothyroidism 43626607 E03.9 pt is stable on levothyrox ine 175mcg daily. due for updated TFT panel. Long-term drug therapy 091774975 Z79.899 cmp, cbc and b12, folate labs are due Cholesterol screening 27 6851712 Z13.220 fasting lipids due. Diabetes m ellitus screening 242078225 Z13.1 a1c screening due Body mass index 30+ - obesity 353270267 Z68.30 bmi 30.5. pt is currently on phentermin e 37.5mg daily. Obesity 118556468 E66.9 discussed healthy diet, exercise, controllin g carbohydra chandler and added sugars in the diet [id number] Uog Matias MD [facility] - [place] Agudelo [address] [place] [address] 12/18/2024 14:39:53 12/18/2024 15:29:23 Hypothyroidism 04201745 E03.9 pt is stable on levothyrox ine 175mcg daily. due for updated TFT panel. Long-term drug therapy 236446109 Z79.899 cmp, cbc and b12, folate labs are due Cholesterol screening 27 8862590 Z13.220 fasting lipids due. Diabetes m ellitus screening 348180211 Z13.1 a1c screening due Adult heal th examination 331872038 Z00.01 Annual wellness exam completed Body mass index 30+ - obesity 391039219 Z68.30 bmi 30 Forgetful 85884422 R41.3 Screening vitamin B12 and folate as well as vitamin-D labs ordered Attention deficit hyperactivity disorder, predominantly inattentive type 96145928 F90.0 Trial of non stimulant therapy atomoxetin e 25 mg daily Health Concerns Section Related Observation LastModified by Organization Detai ls LastModified Time None Recorded Concern Status LastModified by Organization Details LastModified Time None Recorded Advance Directives Directive N: Payers Encounter Date Sequence Insurance Name Policy Number Policy Shetty Covered Member ID Shetty Member ID Guarantor Name 01/27/2024 1 [facility] Julien Garcia [id number] Esther Garcia 12/18/2024 1 [facility] Julien Garcia [id number] Esther Garcia Notes Date Note Type Note Provider Name and Address Organization Details Recorded Time 01/27/2024 text/html ThyroidReported bypatient.Notes:stabl e on levothyroxine 175mcg daily. pt is due for labs. Obesity: pt is on phentermine course for weight loss boost. HAWA Bradley Attn: Accounting[address] [place], [address], [facility] - [facility] 02/12/2024 21:09:17 12/18/2024 text/html ThyroidReported bypatient.Notes:ghassan e on levothyroxine 175mcg daily. pt is due for labs. Here for annual wellness Patient complaints of some forgetfulness and difficulty with focusing and task completion and easy distraction. HAWA Bradley Attn: Accounting[address] [facility], [place], [address], [facility] - [facility] 01/11/2025 20:36:55 OBGyn Episode No OBEpisode recorded.
== END 2025-02-09 07:49 | disposition home or self-care (01) ==
PROVIDERS: PCP Physician Assistant; Visit Provider Obstetrics & Gynecology
DX: Z12.31 Encounter for screening mammogram for malignant neoplasm of breast (principal); R92.8 Other abnormal and inconclusive findings on diagnostic imaging of breast
CPT/HCPCS: 77063; 77067

== ENCOUNTER 2025-03-12 12:58 | Outpatient (CLI) | payer OTHER, SELFPAY ==
--- NOTE | ~2025-03-12 | MM_ITS ---
EXAMINATION: MM diagnostic devi LT w theresa HISTORY: Left breast asymmetry on CC view TECHNIQUE: Additional 3-D tomosynthesis images of the left breast were performed and synthetic 2-D im ages were generated. CAD analysis was submitted and interpreted. COMPARISON: 01/13/2024 and dating back to 11/16/2022 BREAST PARENCHYMAL COMPOSITION:Dense: The breasts are heterogeneously dense, which may obscure small masses. FINDINGS: MAMMOGRAPHIC FINDINGS: The asymmetry detected on screening mammography does not persist with spot compression and likely rep resents a summation artifact (overlapping fibroglandular tissue). Focused ultrasound of the outer left breast is recommended for confirmation. IMPRESSION: Findings which likely represent a summation artifact for which focused ultrasound is recommended for confirmation. BI-RADS Category 0: Incomplete: Needs additional imaging evaluation. Reviewed, dictated and finalized at location A. IMPRESSION: Findings which likely represent a summation artifact for which focused ultrasou nd is recommended for confirmation. BI-RADS Category 0: Incomplete: Needs additional imaging evaluation.
--- OUTSIDE RECORDS SUMMARY | 2025-03-12 13:02 | XMS_ITS | Clinical Summary ---
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 Procedures Procedure Name Priority Date/Time Associated Diagnosis Comments HEPATITIS C ANTIBODY Routine 08/18/2020 11:13 AM ANIMATION CAMERA OPERATOR Encounter for screening for infections with predominantly sexual mode of transmission from Last 3 Months or Most Recently Relevant to Health Maintenance Results * Hepatitis C antibody (08/18/2020 11:13 AM ANIMATION CAMERA OPERATOR) Hep C Ab Nonreactive Nonreactive [facility] Comment:Antibodies to HCV no t detected. Does NOT exclude the possibility of recent exposure to HCV. Blood specimen (specimen) 08/18/2020 11:13 AM ANIMATION CAMERA OPERATOR 08/18/2020 6:07 PM ANIMATION CAMERA OPERATOR Cindy Gaytan MD LAB MICROBIO LOGY - GENERAL ORDERABLES Edited Result - Final [facility] Department [place] [address] from Last 3 Months or Most Recently Relevant to Health Maintenance Insurance [facility] CHOICE PLUS [facility] HMO [facility] HMO/PPO Address: [address] [place] [address] [facility] [employer] Advance Directives For more information, please contact: [phone] * Full Code (Latest Code Status on File) Date Activated Date Inactivated Comments 11/15/2020 6:35 AM 11/16/2020 12:22 PM * Full Code Date Activated Date Inactivated Comments 07/03/2020 6:49 AM 07/04/2020 4:50 AM * Full Code Date Activated Date Inactivated Comments 03/11/2020 12:15 PM 03/11/2020 4:58 PM Care Teams Sulfur Chloride Operator Relationship Specialty Start Date End Date Leslie Eubanks PA PCP - General Physician Healthcare Management 10/02/20 Leslie Eubanks PA Physician Healthcare Management 10/02/20
--- OUTSIDE RECORDS SUMMARY | 2025-03-12 13:02 | XMS_ITS | Referral Summary ---
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 Procedures Procedure Name Priority Date/Time Associated Diagnosis Comments HEPATITIS C ANTIBODY Routine 08/18/2020 11:13 AM BLASTING CLAY MINER Encounter for screening for infections with predominantly sexual mode of transmission from Last 3 Months or Most Recently Relevant to Health Maintenance Results * Hepatitis C antibody (08/18/2020 11:13 AM BLASTING CLAY MINER) Hep C Ab Nonreactive Nonreactive [facility] Comment:Antibodies to HCV no t detected. Does NOT exclude the possibility of recent exposure to HCV. Blood specimen (specimen) 08/18/2020 11:13 AM BLASTING CLAY MINER 08/18/2020 6:07 PM BLASTING CLAY MINER us Cindy Gaytan MD LAB MICROBIO LOGY - GENERAL ORDERABLES Edited Result - Final [facility] Department [place] [address] from Last 3 Months or Most Recently Relevant to Health Maintenance Insurance [facility] CHOICE PLUS [facility] [place] HMO [facility] [employer] Advance Directives For more information, please contact: [phone] * Full Code (Latest Code Status on File) Date Activated Date Inactivated Comments 11/15/2020 6:35 AM 11/16/2020 12:22 PM * Full Code Date Activated Date Inactivated Comments 07/03/2020 6:49 AM 07/04/2020 4:50 AM * Full Code Date Activated Date Inactivated Comments 03/11/2020 12:15 PM 03/11/2020 4:58 PM Care Teams Automobile Mechanic Relationship Specialty Start Date End Date Leslie Eubanks PA PCP - General Physician Numerical Control Tool Programmer 10/02/20 Leslie Eubanks PA Physician Numerical Control Tool Programmer 10/02/20
--- OUTSIDE RECORDS SUMMARY | 2025-03-12 13:02 | XMS_ITS | Data Portability ---
Author Organization [facility] [employer], Main Office Address [address] [place] [address] Assessment No assessment recorded. Plan of Treatment Reminders Order Date Submit Date Provider Last Modified By Organization Details Last Modified Time Details Appointments None recorded. Lab lipid panel, serum 2022 023 [email or web address] [facility], [address] [place] [address], [address], 4 10:04:27 CBC w/ auto diff 2022 023 [email or web address] [facility], [address] [place] [address], [address], 4 10:04:27 CMP, serum or plasma 2022 023 [email or web address] [facility], [address] [place] [address], [address], 4 10:04:27 HbA1c (hemoglobin A1c), blood 2022 023 [email or web address] [facility], [address] [place] [address], [address], 4 10:04:27 TSH + free T4, serum 2022 023 [email or web address] [facility], [address] [place] [address], [address], 4 10:04:27 Referral None recorded. Procedures None recorded. Surgeries None recorded. Imaging None recorded. Medication Orders phentermine 37.5 mg tablet 2022 023 [id number], [address] , [place], [place], [id number], 14:51:29 Patient TargetsNo targets recorded. Patient InstructionsNo instructions recorded. Reason for Referral None Reported. Results Created Date Observation Date Name Description Value Unit Range Abnormal Flag Note LastModifiedBy Organization Detail LastModifiedTime 01/13/2012/03/2022 MAMMO , diagn ostic , digit al, unila teral No observ ation record ed. [email or web address] [address] [facility] [address], [place], [address], 07/10/2023 08:48:21 Result Notes None recorded. Problems Name Problem SNOMED Code Status Onset Date Resolution Date Notes Provider Name and Address Organization Details Recorded Time Acute low back pain 473994963 Active 2022 Not Available [facility] 3 20:03:00 Hypothyroidis m 02756139 Active 2019 Not Available [facility] 3 20:03:00 Weight gain 2421922 Active 2022 HAWA Bradley [address], [address] , [facility] [employer] [facility] 14:50:54 Problem Notes None recorded. 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 Procedure [...] mcg tablet TAKE 1 TABLET BY MOUTH HARNESS MENDER BEFORE BREAKFAST ALONG WITH 25 MCG TABLET [...] Available Not Available Gonal-F RFF Redi-Ject 900 unit/1.44 mL subcutaneou s pen injector 07/05 completed [...] % 99 % 91 /min 97.3 [degF] 68053.9 5 g 116 mm[Hg] 78 mm[Hg] Not Available [facility] 3 20:02:19 Date Recorded Oxygen saturation Oxygen saturation in Arterial blood by Pulse oximetry Heart rate Body temperature Body weight Systolic blood pressure Diastolic blood pressure Provider Name and Address Organization Details Last Updated DateTime 1 99 % 99 % 95 /min 97.2 [degF] 88675.4 7 g 118 mm[Hg] 80 mm[Hg] Not Available [facility] 3 20:02:19 Date Recorded Body height Body temperature Body mass index (BMI) Body weight Respiratory rate Oxygen saturation Oxygen saturation in Arterial blood by Pulse oximetry Heart rate Systolic blood pressure Diastolic blood pressure Provider Name and Address Organization Details Last Updated DateTime 3 177.8 cm 97.2 [degF] 30.4 kg/m2 86905.5 8 g 16 /min 98 % 98 % 72 /min 128 mm[Hg] 72 mm[Hg] VANESSA Culver [place] - [facility] 3 14:19:36 Social History Question Answer Notes LastModified by Organizat ion Details LastModified Time Tobacco Smoking Status Current Every Day Smoker Not Available [facility] 11/10/2022 20:01:56 What Is Your Level Of Caffeine Consumption? Moderate [id number] Information not available 11/10/2022 How Much Tobacco Do You Chew? None MIGRATION.[id number] 8056 Information not available 11/10/2022 In The 14 Days Before Symptom Onset, Have You Had Close Contact With A Laboratory-confirm ed COVID-19 While That Case Was Ill? No MIGRATION.[id number] 0804 Information not available 11/10/2022 In The 14 Days Before Symptom Onset, Have You Had Close Contact With A Person Who Is Under Investigation For COVID-19 While That Person Was Ill? No MIGRATION.616140 4039 Information not available 11/10/2022 What Type Of Diet Are You Following? REGULAR MIGRATION.634675 7879 Information not available 11/10/2022 Which Illicit Or Recreational Drugs Have You Used? None MIGRATION.171255 0265 Information not available 11/10/2022 Have There Been Any Changes To Your Family Or Social Situation? No MIGRATION.627602 5879 Information not available 11/10/2022 Are There Any Guns Present In Your Home? No MIGRATION.492362 0484 Information not available 11/10/2022 Do You Use Insect Repellent Routinely? No MIGRATION.825995 1215 Information not available 11/10/2022 Do You Use Your Seat Belt Or Car Seat Routinely? Yes [id number] Information not available 07/05/2023 At What Age Did You Start Smoking Tobacco? 15 MIGRATION.483186 0956 Information not available 11/10/2022 How Much Tobacco Do You Smoke? 2 PPW MIGRATION.875747 1114 Information not available 11/10/2022 Do You Use Sunscreen Routinely? Yes MIGRATION.682220 7103 Information not available 11/10/2022 Have You Recently Traveled Abroad? No MIGRATION.846473 3975 Information not available 11/10/2022 Do You Have Any Dietary Restrictions? No MIGRATION.119542 8738 Information not available 11/10/2022 Sex: Unknown Functional Status Question Answer Note LastModified by Organizat ion Details LastModified Time Do you use any illicit or recreational drugs? No MIGRATION.635299 0901 Information not available 11/10/2022 Do you or have you ever used any other forms of tobacco or nicotine? No MIGRATION.089289 3171 Information not available 11/10/2022 What is your level of alcohol consumption? Moderate MIGRATION.562253 5716 Information not available 11/10/2022 Do you or have you ever used smokeless tobacco? Never used smokeless tobacco MIGRATION.685854 7003 Information not available 11/10/2022 Do you or have you ever used e-cigarettes or vape? Never used electronic cigarettes MIGRATION.651795 2969 Information not available 11/10/2022 What is your exercise level? Occasional MIGRATION.240782 9880 Information not available 11/10/2022 Mental Status None recorded. Family History Relationship Description Onset Age of this Age Resolved Age Notes LastModified by Organization Details LastModified Time Mother Myocardial infarction patern al grandp arent MIGRATION.721 [id number] Not available 11/10/2022 20:02:00 Father Malignant neoplasm of skin MIGRATION.647 6677775 Not available 11/10/2022 20:02:00 Medical History Condition Response HEADACHES/MIGRAINES Y ASTHMA Y HYPOTHYROIDISM Y Gynecological History Statement/Question Response Menses Monthly Y Date of Last Pap 04/12/2019 Abnormal Pap N Duration of Flow (days) 5 Current Control Method None Date of LMP 12/06/2020 Sexually Active? Y Obstetrics History GPAL:G 0 P 0 0 0 0 Immunizations Vaccine Type Date Status Note Provider Nam e and Address Organization Details Recorded Time Tdap 8 completed Not Available [facility] 11/10/2022 20:04:28 TST-PPD intradermal 4 completed Not Available [facility] 11/10/2022 20:04:28 Past Encounters Encounter ID Performer Location Encounter Start Date Encounter Closed Date Diagnosis/Indication Diagnosis SNOMED-CT Code Diagnosis ICD10 Code Diagnosis Note [id number] HAWA Bradley [facility]ud[facility] [address] [place] [address] 12/16/2020 00:00:00 01/08/2021 08:59:24 [id number] HAWA Bradley [facility] Internal Med [place] [address] [place] [address] 10/19/2022 00:00:00 11/09/2022 18:37:43 [id number] HAWA Bradley [facility] Internal Med Michael Agudelo [address] [place] [address] 07/06/2023 14:14:23 07/06/2023 14:51:07 Hypothyroidism 41381573 E03.9 On lower dose 175mcg daily levothyrox ine, due for updated TFT Cholesterol screening 27 2219776 Z13.220 fasting lipids due Diabetes m ellitus screening 794833867 Z13.1 screening a1c due Long-term drug therapy 213800000 Z79.899 CBC and CMP due Weight gain 3522653 R63. 5 pt would like course of phentermin e to help boost weight loss efforts. she has tolerated well in past. Health Concerns Section Related Observation LastModified by Organization Detai ls LastModified Time None Recorded Concern Status LastModified by Organization Details LastModified Time None Recorded Advance Directives Directive None Recorded Payers Insurance Date Sequence Insurance Name Policy Number Policy Shetty Covered Member ID Shetty Member ID Guarantor Name 07/11/2023 1 [facility] [id number] Julien Garcia [id number] Esther Garcia Notes Date Note Type Note Provider Name and Address Organization Details Recorded Time 1 text/html HypothyroidReported bypatient.Associated Symptoms:no weakness; no lightheadedness; [...] also going through fertility treatment. Not Available [place] [facility] [employer] 01/08/2021 08:59:24 3 text/html HypothyroidReported bypatient.Associated Symptoms:no weakness; no lightheadedness; no fatigue; no cold intolerance; no constipation; no weight gain; no involuntary weight loss; normal mood; no menstrual irregularity; no pain; no dry/coarse skin; no edema; no deepening of the voice; no hoarseness; no goiter; no mass detected; no chest pain; no palpitations Treatment:taking medication as directed Not Available [employer] 11/09/2022 18:37:43 3 text/html HypothyroidismReported bypatient.Quality:not changing [...] changes; no hair changes HAWA Bradley [address] [facility], [address], [address], [facility] [employer] [facility] 07/10/2023 08:55:37 OBGyn Episode No OBEpisode recorded.
--- OUTSIDE RECORDS SUMMARY | 2025-03-12 13:02 | XMS_ITS | Data Portability ---
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 Plan of Treatment Reminders Order Date Submit Date Provider Last Modified By Organization Details Last Modified Time Details Appointments ANY 15 2024 03:15P M HAWA Bradley Not available Not available Not available Lab CMP, serum or plasma 2024 025 [facility], [address], [address], 02/10/2025 09:07:27 CBC w/ auto diff 2024 025 [facility], [address], [address], 02/10/2025 09:07:30 vitamin B12 + folate, serum or blood 2024 025 [facility], [address] [place] [address], [address], 02/10/2025 09:07:28 lipid panel, serum 2024 025 [facility], [address] [facility] [address], [address], 02/10/2025 09:07:25 cobalamin and folate panel, serum 2024 025 [facility], [address] [place] [address] 2, [place], [address], 02/11/2025 01:44:37 vitamin D, 25-hydrox y, total, serum 2024 025 [facility], [address] [place] [address] 2, [place], [address], 02/10/2025 09:07:32 HbA1c (hemoglob in A1c), blood 2024 025 [facility], [address] [place] [address] 2, [place], [address], 02/10/2025 09:07:29 TSH + free T4, serum 2024 025 [facility], [address] [place] [address], [place], [address], 02/10/2025 09:07:26 T3, free, serum or plasma 2024 025 [facility], [address] [place] [address], [place], [address], 02/10/2025 09:07:31 lipid panel, serum 2023 024 [facility], [address] [place] [address], [place], [address], 02/18/2024 08:31:10 CMP, serum or plasma 2023 024 [facility], [address] [place] [address], [place], [address], 02/18/2024 08:31:12 CBC w/ auto diff 2023 024 [facility], [address] [place] [address], [place], [address], 02/18/2024 08:31:15 vitamin B12 + folate, serum or blood 2023 024 [facility], [address] [place] [address], [place], [address], 02/18/2024 08:31:13 HbA1c (hemoglob in A1c), blood 2023 024 [facility], [address] [place] [address] 2, [place], [address], 02/18/2024 08:31:14 TSH + free T4, serum 2023 024 [facility], [address] [place] [address] 2, [place], [address], 02/18/2024 08:31:11 T3, free, serum or plasma [address] [facility], [address] [place] [address] 2, [place], [address], 02/18/2024 08:31:16 Referral None recorded. Procedures None recorded. Surgeries None recorded. Imaging None recorded. Medication Orders atomoxeti ne 25 mg capsule 2024 025 [id number], [address], [place], [id number], 12/18/2024 15:26:44 Wegovy 0.5 mg/0.5 mL subcutane ous pen injector 2024 025 [facility][id number], [address], [place], [id number], 12/18/2024 15:23:42 Patient TargetsNo targets recorded. Patient Instructions Encounter Date Encounter Id Patient Instructions Last Modified By Organization Details Last Modified Time 01/27/2024 [id number] A healthy lifestyle: care instructions [email or web address] Not available 02/12/2024 21:08:17 Reason for Referral None Reported. Results Created Date Observation Date Name Description Value Unit Range Abnormal Flag Note LastModifiedBy Organization Detail LastModifiedTime 02/17/20 24 02/18/2024 LIPID PANEL W/ CHOL/ HDL RATIO cholesterol, total 175 mg/dL 100-19 9 Not Available [facility] ([facility]) [address] [facility], [place], [address], 02/18/2024 08:31:10 02/17/20 24 02/18/2024 LIPID PANEL W/ CHOL/ HDL RATIO triglyceride s 125 mg/dL 0-149 Not Available [facility] ([facility]) [address] [facility], [place], [address], 02/18/2024 08:31:10 02/17/20 24 02/18/2024 LIPID PANEL W/ CHOL/ HDL RATIO HDL cholesterol 47 mg/dL >39 Not Available [facility] ([facility]) [address] [place], [address], 02/18/2024 08:31:10 02/17/20 24 02/18/2024 LIPID PANEL W/ CHOL/ HDL RATIO VLDL cholesterol cade 22 mg/dL 5-40 Not Available [facility] ([facility]) [address] [facility], [place], [address], 02/18/2024 08:31:10 02/17/20 24 02/18/2024 LIPID PANEL W/ CHOL/ HDL RATIO LDL chol calc ([facility]) 106 mg/dL 0-99 above high normal Not Available [facility] ([facility]) [address] [facility], [place], [address], 02/18/2024 08:31:10 02/17/20 24 02/18/2024 LIPID PANEL W/ CHOL/ HDL RATIO T. chol/HDL ratio 3.7 ratio 0.0-4. 4 T. Chol/ HDL Ratio Men Women 1/2 Avg.R isk 3.4 3.3 Avg.R isk 5.0 4.4 2X Avg.R isk 9.6 7.1 3X Avg.R isk 23.4 11.0 Not Available [facility] ([facility]) [address] [place], [address], 02/18/2024 08:31:10 02/17/20 24 02/18/2024 TSH+F REE T4 TSH 7.510 uIU/m L 0.450- 4.500 above high normal Not Available [facility] ([facility]) [address] [facility] [place], [address], 02/18/2024 08:31:11 02/17/20 24 02/18/2024 TSH+F REE T4 T4,free(dire ct) 1.18 NG/dL 0.82-1 .77 Not Available [facility] ([facility]) [address] [facility] [place], [address], 02/18/2024 08:31:11 02/17/20 24 02/18/2024 COMP. METAB OLIC PANEL (14) glucose 97 mg/dL 70-99 Not Available [facility] ([facility]) [address] [facility] [place], [address], 02/18/2024 08:31:12 02/17/20 24 02/18/2024 COMP. METAB OLIC PANEL (14) BUN 11 mg/dL 6-24 Not Available [facility] ([facility]) [address] [place], [address], 02/18/2024 08:31:12 02/17/20 24 02/18/2024 COMP. METAB OLIC PANEL (14) creatinine 0.71 mg/dL 0.57-1 .00 Not Available [facility] ([facility]) [address] [place], [address], 02/18/2024 08:31:12 02/17/20 24 02/18/2024 COMP. METAB OLIC PANEL (14) eGFR 108 mL/mi n/1.7 3 >59 Not Available [facility] ([facility]) [address] [place], [address], 02/18/2024 08:31:12 02/17/20 24 02/18/2024 COMP. METAB OLIC PANEL (14) BUN/creatini ne ratio 15 9-23 Not Available [facility] ([facility]) [address] [facility] [place], [address], 02/18/2024 08:31:12 02/17/20 24 02/18/2024 COMP. METAB OLIC PANEL (14) sodium 138 mmol/ L 134-14 4 Not Available [facility] ([facility]) [address] [facility] [place], [address], 02/18/2024 08:31:12 02/17/20 24 02/18/2024 COMP. METAB OLIC PANEL (14) potassium 4.7 mmol/ L 3.5-5. 2 Not Available [facility] ([facility]) [address] [facility] [place], [address], 02/18/2024 08:31:12 02/17/20 24 02/18/2024 COMP. METAB OLIC PANEL (14) chloride 105 mmol/ L 96-106 Not Available [facility] ([facility]) [address] [facility] [place], [address], 02/18/2024 08:31:12 02/17/20 24 02/18/2024 COMP. METAB OLIC PANEL (14) carbon dioxide, total 22 mmol/ L 20-29 Not Available [facility] ([facility]) [address] [facility] [place], [address], 02/18/2024 08:31:12 02/17/20 24 02/18/2024 COMP. METAB OLIC PANEL (14) calcium 8.7 mg/dL 8.7-10 .2 Not Available [facility] ([facility]) [address] [facility] [place], [address], 02/18/2024 08:31:12 02/17/20 24 02/18/2024 COMP. METAB OLIC PANEL (14) protein, total 6.2 g/dL 6.0-8. 5 Not Available [facility] ([facility]) [address] [facility] [place], [address], 02/18/2024 08:31:12 02/17/20 24 02/18/2024 COMP. METAB OLIC PANEL (14) albumin 4.2 g/dL 3.9-4. 9 Not Available [facility] ([facility]) [address] [place], [address], 02/18/2024 08:31:12 02/17/20 24 02/18/2024 COMP. METAB OLIC PANEL (14) globulin, total 2.0 g/dL 1.5-4. 5 Not Available [facility] ([facility]) [address] [place], [address], 02/18/2024 08:31:12 02/17/20 24 02/18/2024 COMP. METAB OLIC PANEL (14) A/G ratio 2.1 1.2-2. 2 Not Available [facility] ([facility]) [address] [facility] [place], [address], 02/18/2024 08:31:12 02/17/20 24 02/18/2024 COMP. METAB OLIC PANEL (14) bilirubin, total 0.5 mg/dL 0.0-1. 2 Not Available [facility] ([facility]) [address] [facility] [place], [address], 02/18/2024 08:31:12 02/17/20 24 02/18/2024 COMP. METAB OLIC PANEL (14) alkaline phosphatase 53 IU/L 44-121 Not Available [facility] ([facility]) [address] [facility] [place], [address], 02/18/2024 08:31:12 02/17/20 24 02/18/2024 COMP. METAB OLIC PANEL (14) AST (SGOT) 10 IU/L 0-40 Not Available [facility] ([facility]) [address] [facility] [place], [address], 02/18/2024 08:31:12 02/17/20 24 02/18/2024 COMP. METAB OLIC PANEL (14) ALT (SGPT) 13 IU/L 0-32 Not Available [facility] ([facility]) [address] [facility], [place], [address], 02/18/2024 08:31:12 02/17/20 24 02/18/2024 VITAM IN B12 AND FOLAT E vitamin B12 458 pg/mL 232-12 45 Not Available [facility] ([facility]) [address] [facility], [place], [address], 02/18/2024 08:31:13 02/17/20 24 02/18/2024 VITAM IN B12 AND FOLAT E folate (folic acid), serum 16.7 NG/mL >3.0 A serum folat e kirstin ntrat ion of less than 3.1 ng/mL is consi dered to repre sent clini cade defic iency . Not Available [facility] ([facility]) [address] [facility], [place], [address], 02/18/2024 08:31:13 02/17/2002/18/2024 HEMOG LOBIN A1C hemoglobin A1C 5.5 % 4.8-5. 6 Predi abete s: 5.7 - 6.4 Diabe chandler: >6.4 Glyce luis fernando contr ol for adult s with diabe chandler: <7.0 Not Available [facility] ([facility]) [address] [facility], [place], [address], 02/18/2024 08:31:14 02/17/20 24 02/18/2024 CBC WITH DIFFE RENTI AL/PL ATELE T WBC 4.8 x10e3 /uL 3.4-10 .8 Not Available [facility] ([facility]) [address] [facility], [place], [address], 02/18/2024 08:31:15 02/17/20 24 02/18/2024 CBC WITH DIFFE RENTI AL/PL ATELE T RBC 4.61 x10e6 /uL 3.77-5 .28 Not Available [facility] ([facility]) [address] [facility], [place], [address], 02/18/2024 08:31:15 02/17/20 24 02/18/2024 CBC WITH DIFFE RENTI AL/PL ATELE T hemoglobin 14.3 g/dL 11.1-1 5.9 Not Available [facility] ([facility]) [address] [facility], [place], [address], 02/18/2024 08:31:15 02/17/2002/18/2024 CBC WITH DIFFE RENTI AL/PL ATELE T hematocrit 42.6 % 34.0-4 6.6 Not Available [facility] ([facility]) [address] [facility], [place], [address], 02/18/2024 08:31:15 02/17/20 24 02/18/2024 CBC WITH DIFFE RENTI AL/PL ATELE T MCV 92 fL 79-97 Not Available [facility] ([facility]) [address] [place], [address], 02/18/2024 08:31:15 02/17/2002/18/2024 CBC WITH DIFFE RENTI AL/PL ATELE T MCH 31.0 pg 26.6-3 3.0 Not Available [facility] ([facility]) [address] [facility], [place], [address], 02/18/2024 08:31:15 02/17/20 24 02/18/2024 CBC WITH DIFFE RENTI AL/PL ATELE T MCHC 33.6 g/dL 31.5-3 5.7 Not Available [facility] ([facility]) [address] [facility], [place], [address], 02/18/2024 08:31:15 02/17/20 24 02/18/2024 CBC WITH DIFFE RENTI AL/PL ATELE T RDW 12.2 % 11.7-1 5.4 Not Available [facility] ([facility]) [address] [facility], [place], [address], 02/18/2024 08:31:15 02/17/20 24 02/18/2024 CBC WITH DIFFE RENTI AL/PL ATELE T platelets 288 x10e3 /uL 150-45 0 Not Available [facility] ([facility]) [address] [facility], [place], [address], 02/18/2024 08:31:15 02/17/20 24 02/18/2024 CBC WITH DIFFE RENTI AL/PL ATELE T neutrophils 57 % notest ab. Not Available [facility] ([facility]) [address] [facility], [place], [address], 02/18/2024 08:31:15 02/17/20 24 02/18/2024 CBC WITH DIFFE RENTI AL/PL ATELE T lymphs 31 % notest ab. Not Available [facility] ([facility]) [address] [facility], [place], [address], 02/18/2024 08:31:15 02/17/20 24 02/18/2024 CBC WITH DIFFE RENTI AL/PL ATELE T monocytes 6 % notest ab. Not Available [facility] ([facility]) [address] [facility], [place], [address], 02/18/2024 08:31:15 02/17/20 24 02/18/2024 CBC WITH DIFFE RENTI AL/PL ATELE T eos 5 % notest ab. Not Available [facility] ([facility]) [address] [facility], [place], [address], 02/18/2024 08:31:15 02/17/20 24 02/18/2024 CBC WITH DIFFE RENTI AL/PL ATELE T basos 1 % notest ab. Not Available [facility] ([facility]) [address] [facility], [place], [address], 02/18/2024 08:31:15 02/17/20 24 02/18/2024 CBC WITH DIFFE RENTI AL/PL ATELE T neutrophils (absolute) 2.8 x10e3 /uL 1.4-7. 0 Not Available [facility] ([facility]) [address] [facility], [place], [address], 02/18/2024 08:31:15 02/17/20 24 02/18/2024 CBC WITH DIFFE RENTI AL/PL ATELE T lymphs (absolute) 1.5 x10e3 /uL 0.7-3. 1 Not Available [facility] ([facility]) [address] [facility], [place], [address], 02/18/2024 08:31:15 02/17/20 24 02/18/2024 CBC WITH DIFFE RENTI AL/PL ATELE T monocytes(ab solute) 0.3 x10e3 /uL 0.1-0. 9 Not Available [facility] ([facility]) [address] [facility], [place], [address], 02/18/2024 08:31:15 02/17/20 24 02/18/2024 CBC WITH DIFFE RENTI AL/PL ATELE T eos (absolute) 0.2 x10e3 /uL 0.0-0. 4 Not Available [facility] ([facility]) [address] [facility], [place], [address], 02/18/2024 08:31:15 02/17/20 24 02/18/2024 CBC WITH DIFFE RENTI AL/PL ATELE T baso (absolute) 0.0 x10e3 /uL 0.0-0. 2 Not Available [facility] ([facility]) [address] [facility], [place], [address], 02/18/2024 08:31:15 02/17/20 24 02/18/2024 CBC WITH DIFFE RENTI AL/PL ATELE T immature granulocytes 0 % notest ab. Not Available [facility] ([facility]) [address] [place], [address], 02/18/2024 08:31:15 02/17/20 24 02/18/2024 CBC WITH DIFFE RENTI AL/PL ATELE T immature grans (abs) 0.0 x10e3 /uL 0.0-0. 1 Not Available [facility] ([facility]) [address] [place], [address], 02/18/2024 08:31:15 02/17/20 24 02/18/2024 TRIIO DOTHY PRASAD E (T3), FREE triiodothyro nine (T3), free 2.1 pg/mL 2.0-4. 4 Not Available [facility] ([facility]) [address] [place], [address], 02/18/2024 08:31:16 07/20/20 24 07/21/2024 TSH+F REE T4 TSH 0.028 uIU/m L 0.450- 4.500 below low normal Not Available [facility] ([facility]) [address] [place], [address], 07/21/2024 08:23:44 07/20/20 24 07/21/2024 TSH+F REE T4 T4,free(dire ct) 1.80 NG/dL 0.82-1 .77 above high normal Not Available [facility] ([facility]) [address] [place], [address], 07/21/2024 08:23:44 07/20/20 24 07/21/2024 TRIIO DOTHY PRASAD E (T3), FREE triiodothyro nine (T3), free 2.8 pg/mL 2.0-4. 4 Not Available [facility] ([facility]) [address] [place], [address], 07/21/2024 08:23:45 01/13/20 24 01/13/2024 MAMMO , scree verona, digit al, bilat eral No observ ation record ed. [email or web address] [facility] [address] [facility] [address], [place], [address], 01/14/2024 19:39:30 02/10/20 25 02/09/2025 MAMMO , scree verona, digit al, bilat eral No observ ation record ed. [email or web address] [facility] [address] [facility] [address], [place], [address], 03/05/2025 15:22:57 Result Notes None recorded. Problems Name Problem SNOMED Code Status Onset Date Resolution Date Notes Provider Name and Address Organization Details Recorded Time Long-term drug therapy Active 2023 HAWA Bradley Attn: Corky lyles,[address] [facility], [place], [address], [facility] 4 21:07:41 Obesity 291086007 Active 2023 HAWA Bradley Attn: Corky g,[address] [facility], [place], [address], [facility] 4 21:08:18 Body mass index 30+ - obesity 600883994 Active 2023 HAWA Bradley Attn: Raulin g,[address] [facility], [place], [address], [place] [facility] 4 21:08:18 Hypothyroidism 26220965 Active 2023 HAWA Bradley Attn: Accountin g,[address] [facility], [place], [address], [place] [facility] 4 17:45:25 Forgetful 76546743 Active 2024 HAWA Bradley Attn: Raulin g,[address] [facility], [place], [address], [place] [facility] 5 20:36:06 Attention deficit hyperactivity disorder, 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 Procedures Surgical History Date Name Laterality Status Provider Name and Address Organization Details Recorded Time revision of breast implant completed Polo Lizarraga MA [facility] 12/18/2024 15:00:35 D & c after delivery completed Polo Lizarraga MA [facility] 01/27/2024 12:00:28 Imaging Results None recorded. Procedure [...] TABLET BY MOUTH EVERY 4 HOURS NEEDED 12/06 /2024 completed Not Available Not Available Not Available [...] 80 mm[Hg] HAWA Bradley Attn: Accounting,[address] [place], [address], [facility] 12/18/2024 15:25:28 Date Recorded Body height Body mass index (BMI) Body weight Respiratory rate Oxygen saturation Oxygen saturation in Arterial blood by Pulse oximetry Heart rate Systolic blood pressure Diastolic blood pressure Provider Name and Address Organization Details Last Updated DateTime 5 177.8 cm 30 kg/m2 34358.8 1 g 20 /min 98 % 98 % 68 /min 118 mm[Hg] 82 mm[Hg] Polo Lizarraga MA [facility] 5 15:02:18 Date Recorded Body height Body mass index (BMI) Body weight Respiratory rate Oxygen saturation Oxygen saturation in Arterial blood by Pulse oximetry Heart rate Systolic blood pressure Diastolic blood pressure Provider Name and Address Organization Details Last Updated DateTime 4 177.8 cm 30.5 kg/m2 58944.6 6 g 20 /min 99 % 99 % 74 /min 116 mm[Hg] 82 mm[Hg] oPlo Lizarraga [place] [facility] 11:26:41 Social History Question Answer Notes LastModified by Organizat ion Details LastModified Time Tobacco Smoking Status Former Smoker quit 3 years ago Polo Lizarraga [place] null, [place] 01/26/2024 10:13:00 Do You Have An Advance [...] Response Coronary Artery Disease N Other N High Blood Pressure N Atrial Fibrillation N Kidney or Bladder Problems N Thyroid Problems Y GI Problems N Depression N COPD N Blood Clots N Skin Problems N Anemia N Heart Attack ([place]) N Anxiety Disorder N Diabetes N Muscle, Joint, or Bone Problems N Seizures/Epilepsy N Acid Reflux (GERD) N Cancer N Stroke N Asthma N Allergies N High Cholesterol N Hepatitis N Liver Disease N Headaches N Heart Failure N Osteoporosis N Gynecological History Statement/Question Response Menses Monthly [...] PF, 30 mcg/0.3 mL dose 12/18/2020 completed [place], [place] [facility] 12/18/2024 [...] - [facility] 12/18/2024 14:59:32 Tdap 02/10/2022 completed [place] [facility] 12/18/2024 14:59:32 Influenza, split virus, quadrivalent, PF 08/17/2022 completed [place] [facility] 12/18/2024 14:59:32 Past Encounters Encounter ID Performer Location Encounter Start Date Encounter Closed Date Diagnosis/Indication Diagnosis SNOMED-CT Code Diagnosis ICD10 Code Diagnosis Note [id number] Ugo Matias MD [facility] - Michael Agudelo [address] [place] [address] 01/27/2024 11:18:12 01/27/2024 14:25:28 Hypothyroidism 99426996 E03.9 pt is stable on levothyrox ine 175mcg daily. due for updated TFT panel. Long-term drug therapy 549108286 Z79.899 cmp, cbc and b12, folate labs are due Cholesterol screening 27 7503656 Z13.220 fasting lipids due. Diabetes m ellitus screening 223108610 Z13.1 a1c screening due Body mass index 30+ - obesity 828354678 Z68.30 bmi 30.5. pt is currently on phentermin e 37.5mg daily. Obesity 849153028 E66.9 discussed healthy diet, exercise, controllin g carbohydra chandler and added sugars in the diet [id number] Ugo Matias MD [facility] [place] [address] [facility] [address] [place] [address] 12/18/2024 14:39:53 12/18/2024 15:29:23 Hypothyroidism 18377646 E03.9 pt is stable on levothyrox ine 175mcg daily. due for updated TFT panel. Long-term drug therapy 271239591 Z79.899 cmp, cbc and b12, folate labs are due Cholesterol screening 27 6515280 Z13.220 fasting lipids due. Diabetes m ellitus screening 749895298 Z13.1 a1c screening due Adult heal th examination 493613339 Z00.01 Annual wellness exam completed Body mass index 30+ - obesity 041930238 Z68.30 bmi 30 Forgetful 83165945 R41.3 Screening vitamin B12 and folate as well as vitamin-D labs ordered Attention deficit hyperactivity disorder, predominantly inattentive type 38882568 F90.0 Trial of non stimulant therapy atomoxetin e 25 mg daily Health Concerns Section Related Observation LastModified by Organization Detai ls LastModified Time None Recorded Concern Status LastModified by Organization Details LastModified Time None Recorded Advance Directives Directive N: Payers Insurance Date Sequence Insurance Name Policy Number Policy Shetty Covered Member ID Shetty Member ID Guarantor Name 01/14/2025 1 [facility] Julien Garcia [id number] Esther Garcia Notes Date Note Type Note Provider Name and Address Organization Details Recorded Time 01/27/2024 text/html ThyroidReported bypatient.Notes:stabl e on levothyroxine 175mcg daily. pt is due for labs. Obesity: pt is on phentermine course for weight loss boost. HAWA Bradley Attn: Accounting,[address], [place], [address], [facility] 02/12/2024 21:09:17 12/18/2024 text/html ThyroidReported bypatient.Notes:ghassan carrington on levothyroxine 175mcg daily. pt is due for labs. Here for annual wellness Patient complaints of some forgetfulness and difficulty with focusing and task completion and easy distraction. HAWA Bradley Attn: Accounting,[address], [place], [address], [facility] 01/11/2025 20:36:55 OBGyn Episode No OBEpisode recorded.
--- OUTSIDE RECORDS SUMMARY | 2025-03-12 13:02 | XMS_ITS | Data Portability ---
Author Organization [place] - [facility] , [employer] [facility] Address [address] [place] [address] Assessment No assessment recorded. Plan of Treatment Reminders Order Date Submit Date Provider Last Modified By Organization Details Last Modified Time Details Appointments None recorded. Lab None recorded. Referral None recorded. Procedures None recorded. Surgeries None recorded. Imaging None recorded. Medication Orders azithromyci n 250 mg tablet 2024 025 [facility], [address], [place], [address], 13:55:27 Patient TargetsNo targets recorded. Patient Instructions Encounter Date Encounter Id Patient Instructions Last Modified By Organization Details Last Modified Time 10/13/2024 [id number] bronchitis: care instructions [email or web address] Not available 10/13/2024 13:55:19 Reason for Referral None Reported. Medical Equipment None Reported. Allergies No known drug allergies Medications Name Sig Start Date Stop Date Status Note LastModified by Organization Details LastModified Time azithromycin 250 mg tablet TAKE 2 TABLETS (500 MG) BY ORAL ROUTE ONCE DAILY FOR 1 DAY THEN 1 TABLET (250 MG) BY ORAL ROUTE ONCE DAILY FOR 4 DAYS 2024 active Not Available Not Available Not Avai lable levothyroxine active ADDED BY BARNEY T: 175 MCG daily Not Available Not Available Not Available Vitals None Recorded Social History None recorded. Functional Status None recorded. Mental Status None recorded. Family History Nothing Reported. Medical History No medical history recorded. Gynecological HistoryNo gynecological history recorded. Obstetrics History GPAL:G 0 P 0 0 0 0 Past Encounters Encounter ID Performer Location Encounter Start Date Encounter Closed Date Diagnosis/Indication Diagnosis SNOMED-CT Code Diagnosis ICD10 Code Diagnosis Note [id number] Rod Najera MD [employer] [facility] [address] [place] [address] 10/13/2024 13:50:42 10/13/2024 19:55:32 Acute bronchitis 13810798 J20.9 discussed symptomati c management , continue otc medication as needed. will start azithromyc in. Health Concerns Section Related Observation LastModified by Organization Detai ls LastModified Time None Recorded Concern Status LastModified by Organization Details LastModified Time None Recorded Advance Directives Directive None Recorded Payers Insurance Date Sequence Insurance Name Policy Number Policy Shetty Covered Member ID Shetty Member ID Guarantor Name 10/13/2024 3 *SELF PAY* [id number] Juliendea Garcia [id number] Juliendea Garcia 11/05/2024 1 [facility] [id number] Julien Garcia [id number] Julien Garcia 10/13/2024 1 *SELF PAY* Chantal katie Garcia 10/13/2024 [employer] [id number] Julien Garcia [id number] Julien Garcia 10/13/2024 2 [facility] [id number] Julien Garcia [id number] Julien Garcia Notes Date Note Type Note Provider Name and Address Organization Details Recorded Time 10/13/2024 text/html Patient name , location, and phone number confirmed. Limitations of telemedicine evaluations reviewed, all questions answered, and verbal consent obtained to treat via secure video telemedicine interaction. Clinician attests that the clinician is physically located in the following state at the time of the visit: [place] Patient's current location is: home address on file (home/workplace/ot her address) in [place] (state) had cold last week, which did get better, but now worse- son sick contact - concern for pneumonia- no fever. has had some body ache, fatigue- breathing is okay- does take some benadryl at night- cough productive - mucus- no active asthma history Rod Najera MD 1 [facility] [address], [place], [address], [place] [facility] 10/13/2024 13:55:54 OBGyn Episode No OBEpisode recorded.
== END 2025-03-12 12:59 | disposition home or self-care (01) ==
PROVIDERS: PCP Physician Assistant; Visit Provider Obstetrics & Gynecology
DX: R92.8 Other abnormal and inconclusive findings on diagnostic imaging of breast (principal)
CPT/HCPCS: 77061; 77065; G0279

== ENCOUNTER 2025-03-13 12:57 | Outpatient (CLI) | payer OTHER, SELFPAY ==
--- NOTE | ~2025-03-13 | US_ITS ---
EXAMINATION: US breast LT limited HISTORY: Abnormal mammogram High resolution limited left breast ultrasound was performed. COMPARISON: Reference is made to previous ultrasounds dating back to 12/03/2022 as well as prior mammo graphy dating back to 11/16/2022 FINDINGS: ULTRASOUND: Well-circumscribed anechoic avascular focus at the 12:00 position of the left breast approximately 3 cm from the nipple consistent with a simple cyst for which no further follow-up is needed. Sonographic evaluation of the remainder of the left breast demonstrates benign fibroglandular element s without a cystic or solid lesion of concern. IMPRESSION: Simple cyst at the 12:00 position of the left breast approximately 3 cm from the nipple for which no further follow-up is needed. BI-RADS 2: Benign findings. Resumption of yearly mammography is recommended. Reviewed, dictated and finalized at location A. IMPRESSION: Simple cyst at the 12:00 position of the left breast approximately 3 cm from th e nipple for which no further follow-up is needed. BI-RADS 2: Benign findings. Resumption of yearly mammography is recommended.
--- OUTSIDE RECORDS SUMMARY | 2025-03-13 13:02 | XMS_ITS | Referral Summary ---
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 Procedures Procedure Name Priority Date/Time Associated Diagnosis Comments HEPATITIS C ANTIBODY Routine 08/18/2020 11:13 AM INDUSTRIAL YARD BRAKE COUPLER Encounter for screening for infections with predominantly sexual mode of transmission from Last 3 Months or Most Recently Relevant to Health Maintenance Results * Hepatitis C antibody (08/18/2020 11:13 AM INDUSTRIAL YARD BRAKE COUPLER) Hep C Ab Nonreactive Nonreactive [facility] Comment:Antibodies to HCV no t detected. Does NOT exclude the possibility of recent exposure to HCV. Blood specimen (specimen) 08/18/2020 11:13 AM INDUSTRIAL YARD BRAKE COUPLER 08/18/2020 6:07 PM INDUSTRIAL YARD BRAKE COUPLER us Cindy Gaytan MD LAB MICROBIO LOGY - GENERAL ORDERABLES Edited Result - Final [facility] Department [place] [address] from Last 3 Months or Most Recently Relevant to Health Maintenance Insurance [facility] CHO[employer]PPO Address: [address] [address] [place] [address] [facility] HMO [facility] [employer] [facility] H[employer]/PPO Address: [id number] [place] [address] Advance Directives For more information, please contact: [phone] * Full Code (Latest Code Status on File) Date Activated Date Inactivated Comments 11/15/2020 6:35 AM 11/16/2020 12:22 PM * Full Code Date Activated Date Inactivated Comments 07/03/2020 6:49 AM 07/04/2020 4:50 AM * Full Code Date Activated Date Inactivated Comments 03/11/2020 12:15 PM 03/11/2020 4:58 PM Care Teams Machine Operator Assistant Relationship Specialty Start Date End Date Leslie Eubanks PA PCP - General Physician Child Welfare Specialist 10/02/20 Leslie Eubanks PA Physician Child Welfare Specialist 10/02/20
--- OUTSIDE RECORDS SUMMARY | 2025-03-13 13:02 | XMS_ITS | Data Portability ---
Author Organization [place] - [facility] , [facility] Address [address] [place] [address] Assessment No assessment recorded. Plan of Treatment Reminders Order Date Submit Date Provider Last Modified By Organization Details Last Modified Time Details Appointments None recorded. Lab None recorded. Referral None recorded. Procedures None recorded. Surgeries None recorded. Imaging None recorded. Medication Orders azithromyci n 250 mg tablet 2024 025 [facility] [address], [address], [place], [address], 13:55:27 Patient TargetsNo targets recorded. Patient Instructions Encounter Date Encounter Id Patient Instructions Last Modified By Organization Details Last Modified Time 10/13/2024 [id number] bronchitis: care instructions [email or web address] Not available 10/13/2024 [...] SNOMED-CT Code Diagnosis ICD10 Code Diagnosis Note [id number] Rod Najera MD [facility] [address] [place] [address] 10/13/2024 13:50:42 10/13/2024 19:55:32 Acute bronchitis 27737683 J20.9 discussed symptomati c management , continue [...] ID Guarantor Name 10/13/2024 3 *SELF PAY* [id number] Juliendea Garcia [id number] Juliendea Garcia 11/05/2024 1 [facility] [id number] Julien Garcia [id number] Julien Garcia 10/13/2024 1 *SELF PAY* Chantal katie Garcia 10/13/2024 [employer] [id number] Julien Garcia [id number] Julien Garcia 10/13/2024 2 [facility] [id number] Julien Garcia [id number] Julien Garcia Notes Date Note Type Note [...] address on file (home/workplace/ot her address) in [place] (state) had cold last week, which did get better, but now worse- son sick contact - concern for pneumonia- no fever. has had some body ache, fatigue- breathing is okay- does take some benadryl at night- cough productive - mucus- no active asthma history Rod Najera MD 1 [facility] [address], [place], [address], [place] [facility] 10/13/2024 13:55:54 OBGyn Episode No OBEpisode recorded.
--- OUTSIDE RECORDS SUMMARY | 2025-03-13 13:02 | XMS_ITS | Data Portability ---
Author Organization [facility] [employer], Main Office Address [address] [place] [address] Assessment No assessment recorded. Plan of Treatment Reminders Order Date Submit Date Provider Last Modified By Organization Details Last Modified Time Details Appointments None recorded. Lab lipid panel, serum 2022 023 [email or web address], [address] [place] [address], [address], 4 10:04:27 CBC w/ auto diff 2022 023 [email or web address], [address] [place] [address], [address], 4 10:04:27 CMP, serum or plasma 2022 023 [email or web address], [address] [place] [address], [address], 4 10:04:27 HbA1c (hemoglobin A1c), blood 2022 023 [email or web address], [address] [place] [address], [address], 4 10:04:27 TSH + free T4, serum 2022 023 [email or web address], [address] [place] [address], [address], 4 10:04:27 Referral None recorded. Procedures None recorded. Surgeries None recorded. Imaging None recorded. Medication Orders phentermine 37.5 mg tablet 2022 023 [id number], [address] , [place], [place], [id number], 14:51:29 Patient TargetsNo targets recorded. Patient InstructionsNo instructions recorded. Reason for Referral None Reported. Results Created Date Observation Date Name Description Value Unit Range Abnormal Flag Note LastModifiedBy Organization Detail LastModifiedTime 01/13/2012/03/2022 MAMMO , diagn ostic , digit al, unila teral No observ ation record ed. [email or web address] [address] [facility] [address], [place], [address], 07/10/2023 08:48:21 Result Notes None recorded. Problems Name Problem SNOMED Code Status Onset Date Resolution Date Notes Provider Name and Address Organization Details Recorded Time Acute low back pain 384748040 Active 2022 Not Available [facility] 3 20:03:00 Hypothyroidis m 09883604 Active 2019 Not Available [facility] 3 20:03:00 Weight gain 4514988 Active 2022 HAWA Bradley [address], [address] , [facility] [employer] 14:50:54 Problem Notes None recorded. Procedures Surgical History Date Name Laterality Status Provider Name and Address Organization Details Recorded Time 9 [employer] Surgery completed Not Available [facility] 11/11/19 20:01:59 2 Removal of thyroid completed Not Available [facility] 11/10/2022 20:01:59 Imaging Results None recorded. Procedure [...] mcg tablet TAKE 1 TABLET BY MOUTH INTERNET MARKETING DIRECTOR BEFORE BREAKFAST ALONG WITH 25 MCG TABLET [...] % 99 % 91 /min 97.3 [degF] 62025.9 5 g 116 mm[Hg] 78 mm[Hg] Not Available [facility] 3 20:02:19 Date Recorded Oxygen saturation Oxygen saturation in Arterial blood by Pulse oximetry Heart rate Body temperature Body weight Systolic blood pressure Diastolic blood pressure Provider Name and Address Organization Details Last Updated DateTime 1 99 % 99 % 95 /min 97.2 [degF] 23008.4 7 g 118 mm[Hg] 80 mm[Hg] Not Available [facility] 3 20:02:19 Date Recorded Body height Body temperature Body mass index (BMI) Body weight Respiratory rate Oxygen saturation Oxygen saturation in Arterial blood by Pulse oximetry Heart rate Systolic blood pressure Diastolic blood pressure Provider Name and Address Organization Details Last Updated DateTime 3 177.8 cm 97.2 [degF] 30.4 kg/m2 84096.5 8 g 16 /min 98 % 98 % 72 /min 128 mm[Hg] 72 mm[Hg] VANESSA Culver [place] - [facility] 3 14:19:36 Social History Question Answer Notes LastModified by Organizat ion Details LastModified Time Tobacco Smoking Status Current Every Day Smoker Not Available [facility] 11/10/2022 20:01:56 What Is Your Level Of Caffeine Consumption? Moderate [id number] Information not available 11/10/2022 How Much Tobacco Do You Chew? None [id number].[id number] 3386 Information not available 11/10/2022 In The 14 Days Before Symptom Onset, Have You Had Close Contact With A Laboratory-confirm ed COVID-19 While That Case Was Ill? No MIGRATION.562664 3463 Information not available 11/10/2022 In The 14 Days Before Symptom Onset, Have You Had Close Contact With A Person Who Is Under Investigation For COVID-19 While That Person Was Ill? No MIGRATION.137472 3803 Information not available 11/10/2022 What Type Of Diet Are You Following? REGULAR MIGRATION.292118 2745 Information not available 11/10/2022 Which Illicit Or Recreational Drugs Have You Used? None MIGRATION.632821 7059 Information not available 11/10/2022 Have There Been Any Changes To Your Family Or Social Situation? No MIGRATION.336415 1533 Information not available 11/10/2022 Are There Any Guns Present In Your Home? No MIGRATION.797143 3981 Information not available 11/10/2022 Do You Use Insect Repellent Routinely? No MIGRATION.603824 7635 Information not available 11/10/2022 Do You Use Your Seat Belt Or Car Seat Routinely? Yes [email or web address] Information not available 07/05/2023 At What Age Did You Start Smoking Tobacco? 15 MIGRATION.584039 3974 Information not available 11/10/2022 How Much Tobacco Do You Smoke? 2 PPW MIGRATION.576647 0079 Information not available 11/10/2022 Do You Use Sunscreen Routinely? Yes MIGRATION.374461 1150 Information not available 11/10/2022 Have You Recently Traveled Abroad? No MIGRATION.134050 8537 Information not available 11/10/2022 Do You Have Any Dietary Restrictions? No MIGRATION.968246 5257 Information not available 11/10/2022 Sex: Unknown Functional Status Question Answer Note LastModified by Organizat ion Details LastModified Time Do you use any illicit or recreational drugs? No MIGRATION.819166 7478 Information not available 11/10/2022 Do you or have you ever used any other forms of tobacco or nicotine? No MIGRATION.865893 6271 Information not available 11/10/2022 What is your level of alcohol consumption? Moderate MIGRATION.522836 1591 Information not available 11/10/2022 Do you or have you ever used smokeless tobacco? Never used smokeless tobacco MIGRATION.559666 7654 Information not available 11/10/2022 Do you or have you ever used e-cigarettes or vape? Never used electronic cigarettes MIGRATION.090197 7026 Information not available 11/10/2022 What is your exercise level? Occasional MIGRATION.326653 2493 Information not available 11/10/2022 Mental Status None recorded. Family History Relationship Description Onset Age of this Age Resolved Age Notes LastModified by Organization Details LastModified Time Mother Myocardial infarction patern al grandp arent [id number] Not available 11/10/2022 20:02:00 Father Malignant neoplasm of skin MIGRATION.648 [id number] Not available 11/10/2022 20:02:00 Medical History Condition [...] SNOMED-CT Code Diagnosis ICD10 Code Diagnosis Note [id number] HAWA Bradley [facility] Michael [facility] [address] [place] [address] 12/16/2020 00:00:00 01/08/2021 08:59:24 [id number] HAWA Bradley [facility] Internal Med Michael Agudelo [address] [place] [address] 10/19/2022 00:00:00 11/09/2022 18:37:43 [id number] HAWA Bradley [facility] Michael Agudelo [address] [place] [address] 07/06/2023 14:14:23 07/06/2023 14:51:07 Hypothyroidism 97815126 E03.9 On lower dose 175mcg daily levothyrox ine, due for updated TFT Cholesterol screening 27 7906511 Z13.220 fasting lipids due Diabetes m ellitus screening 696365253 Z13.1 screening a1c due Long-term drug therapy 186504709 Z79.899 CBC and CMP due Weight gain 1969909 R63. 5 pt would like course of [...] Shetty Member ID Guarantor Name 07/11/2023 1 [facility] [id number] Julien Garcia [id number] Esther Garcia Notes Date Note Type Note [...] also going through fertility treatment. Not Available [place] [facility] [employer] 01/08/2021 08:59:24 3 text/html HypothyroidReported bypatient.Associated Symptoms:no weakness; no lightheadedness; no fatigue; no cold intolerance; no constipation; no weight gain; no involuntary weight loss; normal mood; no menstrual irregularity; no pain; no dry/coarse skin; no edema; no deepening of the voice; no hoarseness; no goiter; no mass detected; no chest pain; no palpitations Treatment:taking medication as directed Not Available [employer] 11/09/2022 18:37:43 3 text/html HypothyroidismReported bypatient.Quality:not changing [...] changes; no hair changes HAWA Bradley [address] [facility], [address], [address], [facility] [employer] [facility] 07/10/2023 08:55:37 OBGyn Episode No OBEpisode recorded.
--- OUTSIDE RECORDS SUMMARY | 2025-03-13 13:02 | XMS_ITS | Data Portability ---
Author Organization [facility] Ramonita Garcia Address [address] [place] [address] Care Team Providers Care Plastic Straightening Roll Operator Name Role Phone JOSH VIERA Primary Care Provider KELSEY Farias Color Control Supervisor Assessment No assessment recorded. Plan of Treatment Reminders Order Date Submit Date Provider Last Modified By Organization Details Last Modified Time Details Appointments ANY 15 2024 03:15P M HAWA Bradley Not available Not available Not available Lab CMP, serum or plasma 2024 025 [facility], [address], [address], 02/10/2025 09:07:27 CBC w/ auto diff 2024 025 [facility], [address], [address], 02/10/2025 09:07:30 vitamin B12 + folate, serum or blood 2024 025 [facility], [address] [place] [address], [address], 02/10/2025 09:07:28 lipid panel, serum 2024 025 [facility], 102 [facility] [place], [address], 02/10/2025 09:07:25 cobalamin and folate panel, serum 2024 025 [facility], [address] [place] [address], [place], [address], 02/11/2025 01:44:37 vitamin D, 25-hydrox y, total, serum 2024 025 [facility], [address] [place] [address], [place], [address], 02/10/2025 09:07:32 HbA1c (hemoglob in A1c), blood 2024 025 [facility], [address] [place] [address], [place], [address], 02/10/2025 09:07:29 TSH + free T4, serum 2024 025 [facility], [address] [place] [address], [place], [address], 02/10/2025 09:07:26 T3, free, serum or plasma 2024 025 [facility], [address] [place] [address], [place], [address], 02/10/2025 09:07:31 lipid panel, serum 2023 024 [facility], [address] [place] [address], [place], [address], 02/18/2024 08:31:10 CMP, serum or plasma 2023 024 [facility], [address] [place] [address], [place], [address], 02/18/2024 08:31:12 CBC w/ auto diff 2023 024 [facility], [address] [place] [address], [place], [address], 02/18/2024 08:31:15 vitamin B12 + folate, serum or blood 2023 024 [facility], [address] [place] [address], [place], [address], 02/18/2024 08:31:13 HbA1c (hemoglob in A1c), blood 2023 024 [facility], [address] [place] [address], [place], [address], 02/18/2024 08:31:14 TSH + free T4, serum 2023 024 [facility], [address] [place] [address], [place], [address], 02/18/2024 08:31:11 T3, free, serum or plasma 2023 024 [facility], [address] [place] [address], [place], [address], 02/18/2024 08:31:16 Referral None recorded. Procedures None recorded. Surgeries None recorded. Imaging None recorded. Medication Orders atomoxeti ne 25 mg capsule 2024 025 [id number], [address] [place], [place], [id number], 12/18/2024 15:26:44 Wegovy 0.5 mg/0.5 mL subcutane ous pen injector 2024 025 [id number], [address] [place], [place], [id number], 12/18/2024 15:23:42 Patient TargetsNo targets recorded. Patient Instructions Encounter Date Encounter Id Patient Instructions Last Modified By Organization Details Last Modified Time 01/27/2024 [id number] A healthy lifestyle: care instructions [email or web address] Not available 02/12/2024 21:08:17 Reason for Referral None Reported. Results Created Date Observation Date Name Description Value Unit Range Abnormal Flag Note LastModifiedBy Organization Detail LastModifiedTime 02/17/20 24 02/18/2024 LIPID PANEL W/ CHOL/ HDL RATIO cholesterol, total 175 mg/dL 100-19 9 Not Available [facility] ([facility]) [address] [facility], [place], [address], 02/18/2024 08:31:10 02/17/20 24 02/18/2024 LIPID PANEL W/ CHOL/ HDL RATIO triglyceride s 125 mg/dL 0-149 Not Available [facility] ([facility]) [address] [facility], [place], [address], 02/18/2024 08:31:10 02/17/20 24 02/18/2024 LIPID PANEL W/ CHOL/ HDL RATIO HDL cholesterol 47 mg/dL >39 Not Available [facility] ([facility]) [address] [place], [address], 02/18/2024 08:31:10 02/17/20 24 02/18/2024 LIPID PANEL W/ CHOL/ HDL RATIO VLDL cholesterol cade 22 mg/dL 5-40 Not Available [facility] ([facility]) [address] [facility], [place], [address], 02/18/2024 08:31:10 02/17/20 24 02/18/2024 LIPID PANEL W/ CHOL/ HDL RATIO LDL chol calc ([facility]) 106 mg/dL 0-99 above high normal Not Available [facility] ([facility]) [address] [facility], [place], [address], 02/18/2024 08:31:10 02/17/20 24 02/18/2024 LIPID PANEL W/ CHOL/ HDL RATIO T. chol/HDL ratio 3.7 ratio 0.0-4. 4 T. Chol/ HDL Ratio Men Women 1/2 Avg.R isk 3.4 3.3 Avg.R isk 5.0 4.4 2X Avg.R isk 9.6 7.1 3X Avg.R isk 23.4 11.0 Not Available [facility] ([facility]) [address] [place], [address], 02/18/2024 08:31:10 02/17/20 24 02/18/2024 TSH+F REE T4 TSH 7.510 uIU/m L 0.450- 4.500 above high normal Not Available [facility] ([facility]) [address] [facility] [place], [address], 02/18/2024 08:31:11 02/17/20 24 02/18/2024 TSH+F REE T4 T4,free(dire ct) 1.18 NG/dL 0.82-1 .77 Not Available [facility] ([facility]) [address] [facility] [place], [address], 02/18/2024 08:31:11 02/17/20 24 02/18/2024 COMP. METAB OLIC PANEL (14) glucose 97 mg/dL 70-99 Not Available [facility] ([facility]) [address] [facility] [place], [address], 02/18/2024 08:31:12 02/17/20 24 02/18/2024 COMP. METAB OLIC PANEL (14) BUN 11 mg/dL 6-24 Not Available [facility] ([facility]) [address] [place], [address], 02/18/2024 08:31:12 02/17/20 24 02/18/2024 COMP. METAB OLIC PANEL (14) creatinine 0.71 mg/dL 0.57-1 .00 Not Available [facility] ([facility]) [address] [place], [address], 02/18/2024 08:31:12 02/17/20 24 02/18/2024 COMP. METAB OLIC PANEL (14) eGFR 108 mL/mi n/1.7 3 >59 Not Available [facility] ([facility]) [address] [place], [address], 02/18/2024 08:31:12 02/17/20 24 02/18/2024 COMP. METAB OLIC PANEL (14) BUN/creatini ne ratio 15 9-23 Not Available [facility] ([facility]) [address] [facility] [place], [address], 02/18/2024 08:31:12 02/17/20 24 02/18/2024 COMP. METAB OLIC PANEL (14) sodium 138 mmol/ L 134-14 4 Not Available [facility] ([facility]) [address] [facility] [place], [address], 02/18/2024 08:31:12 02/17/20 24 02/18/2024 COMP. METAB OLIC PANEL (14) potassium 4.7 mmol/ L 3.5-5. 2 Not Available [facility] ([facility]) [address] [facility] [place], [address], 02/18/2024 08:31:12 02/17/20 24 02/18/2024 COMP. METAB OLIC PANEL (14) chloride 105 mmol/ L 96-106 Not Available [facility] ([facility]) [address] [facility] [place], [address], 02/18/2024 08:31:12 02/17/20 24 02/18/2024 COMP. METAB OLIC PANEL (14) carbon dioxide, total 22 mmol/ L 20-29 Not Available [facility] ([facility]) [address] [facility] [place], [address], 02/18/2024 08:31:12 02/17/20 24 02/18/2024 COMP. METAB OLIC PANEL (14) calcium 8.7 mg/dL 8.7-10 .2 Not Available [facility] ([facility]) [address] [facility] [place], [address], 02/18/2024 08:31:12 02/17/20 24 02/18/2024 COMP. METAB OLIC PANEL (14) protein, total 6.2 g/dL 6.0-8. 5 Not Available [facility] ([facility]) [address] [facility] [place], [address], 02/18/2024 08:31:12 02/17/20 24 02/18/2024 COMP. METAB OLIC PANEL (14) albumin 4.2 g/dL 3.9-4. 9 Not Available [facility] ([facility]) [address] [place], [address], 02/18/2024 08:31:12 02/17/20 24 02/18/2024 COMP. METAB OLIC PANEL (14) globulin, total 2.0 g/dL 1.5-4. 5 Not Available [facility] ([facility]) [address] [place], [address], 02/18/2024 08:31:12 02/17/20 24 02/18/2024 COMP. METAB OLIC PANEL (14) A/G ratio 2.1 1.2-2. 2 Not Available [facility] ([facility]) [address] [facility] [place], [address], 02/18/2024 08:31:12 02/17/20 24 02/18/2024 COMP. METAB OLIC PANEL (14) bilirubin, total 0.5 mg/dL 0.0-1. 2 Not Available [facility] ([facility]) [address] [facility] [place], [address], 02/18/2024 08:31:12 02/17/20 24 02/18/2024 COMP. METAB OLIC PANEL (14) alkaline phosphatase 53 IU/L 44-121 Not Available [facility] ([facility]) [address] [facility] [place], [address], 02/18/2024 08:31:12 02/17/20 24 02/18/2024 COMP. METAB OLIC PANEL (14) AST (SGOT) 10 IU/L 0-40 Not Available [facility] ([facility]) [address] [facility] [place], [address], 02/18/2024 08:31:12 02/17/20 24 02/18/2024 COMP. METAB OLIC PANEL (14) ALT (SGPT) 13 IU/L 0-32 Not Available [facility] ([facility]) [address] [facility], [place], [address], 02/18/2024 08:31:12 02/17/20 24 02/18/2024 VITAM IN B12 AND FOLAT E vitamin B12 458 pg/mL 232-12 45 Not Available [facility] ([facility]) [address] [facility], [place], [address], 02/18/2024 08:31:13 02/17/20 24 02/18/2024 VITAM IN B12 AND FOLAT E folate (folic acid), serum 16.7 NG/mL >3.0 A serum folat e kirstin ntrat ion of less than 3.1 ng/mL is consi dered to repre sent clini cade defic iency . Not Available [facility] ([facility]) [address] [facility], [place], [address], 02/18/2024 08:31:13 02/17/2002/18/2024 HEMOG LOBIN A1C hemoglobin A1C 5.5 % 4.8-5. 6 Predi abete s: 5.7 - 6.4 Diabe chandler: >6.4 Glyce luis fernando contr ol for adult s with diabe chandler: <7.0 Not Available [facility] ([facility]) [address] [facility], [place], [address], 02/18/2024 08:31:14 02/17/20 24 02/18/2024 CBC WITH DIFFE RENTI AL/PL ATELE T WBC 4.8 x10e3 /uL 3.4-10 .8 Not Available [facility] ([facility]) [address] [facility], [place], [address], 02/18/2024 08:31:15 02/17/20 24 02/18/2024 CBC WITH DIFFE RENTI AL/PL ATELE T RBC 4.61 x10e6 /uL 3.77-5 .28 Not Available [facility] ([facility]) [address] [facility], [place], [address], 02/18/2024 08:31:15 02/17/20 24 02/18/2024 CBC WITH DIFFE RENTI AL/PL ATELE T hemoglobin 14.3 g/dL 11.1-1 5.9 Not Available [facility] ([facility]) [address] [facility], [place], [address], 02/18/2024 08:31:15 02/17/2002/18/2024 CBC WITH DIFFE RENTI AL/PL ATELE T hematocrit 42.6 % 34.0-4 6.6 Not Available [facility] ([facility]) [address] [facility], [place], [address], 02/18/2024 08:31:15 02/17/20 24 02/18/2024 CBC WITH DIFFE RENTI AL/PL ATELE T MCV 92 fL 79-97 Not Available [facility] ([facility]) [address] [place], [address], 02/18/2024 08:31:15 02/17/2002/18/2024 CBC WITH DIFFE RENTI AL/PL ATELE T MCH 31.0 pg 26.6-3 3.0 Not Available [facility] ([facility]) [address] [facility], [place], [address], 02/18/2024 08:31:15 02/17/20 24 02/18/2024 CBC WITH DIFFE RENTI AL/PL ATELE T MCHC 33.6 g/dL 31.5-3 5.7 Not Available [facility] ([facility]) [address] [facility], [place], [address], 02/18/2024 08:31:15 02/17/20 24 02/18/2024 CBC WITH DIFFE RENTI AL/PL ATELE T RDW 12.2 % 11.7-1 5.4 Not Available [facility] ([facility]) [address] [facility], [place], [address], 02/18/2024 08:31:15 02/17/20 24 02/18/2024 CBC WITH DIFFE RENTI AL/PL ATELE T platelets 288 x10e3 /uL 150-45 0 Not Available [facility] ([facility]) [address] [facility], [place], [address], 02/18/2024 08:31:15 02/17/20 24 02/18/2024 CBC WITH DIFFE RENTI AL/PL ATELE T neutrophils 57 % notest ab. Not Available [facility] ([facility]) [address] [facility], [place], [address], 02/18/2024 08:31:15 02/17/20 24 02/18/2024 CBC WITH DIFFE RENTI AL/PL ATELE T lymphs 31 % notest ab. Not Available [facility] ([facility]) [address] [facility], [place], [address], 02/18/2024 08:31:15 02/17/20 24 02/18/2024 CBC WITH DIFFE RENTI AL/PL ATELE T monocytes 6 % notest ab. Not Available [facility] ([facility]) [address] [facility], [place], [address], 02/18/2024 08:31:15 02/17/20 24 02/18/2024 CBC WITH DIFFE RENTI AL/PL ATELE T eos 5 % notest ab. Not Available [facility] ([facility]) [address] [facility], [place], [address], 02/18/2024 08:31:15 02/17/20 24 02/18/2024 CBC WITH DIFFE RENTI AL/PL ATELE T basos 1 % notest ab. Not Available [facility] ([facility]) [address] [facility], [place], [address], 02/18/2024 08:31:15 02/17/20 24 02/18/2024 CBC WITH DIFFE RENTI AL/PL ATELE T neutrophils (absolute) 2.8 x10e3 /uL 1.4-7. 0 Not Available [facility] ([facility]) [address] [facility], [place], [address], 02/18/2024 08:31:15 02/17/20 24 02/18/2024 CBC WITH DIFFE RENTI AL/PL ATELE T lymphs (absolute) 1.5 x10e3 /uL 0.7-3. 1 Not Available [facility] ([facility]) [address] [facility], [place], [address], 02/18/2024 08:31:15 02/17/20 24 02/18/2024 CBC WITH DIFFE RENTI AL/PL ATELE T monocytes(ab solute) 0.3 x10e3 /uL 0.1-0. 9 Not Available [facility] ([facility]) [address] [facility], [place], [address], 02/18/2024 08:31:15 02/17/20 24 02/18/2024 CBC WITH DIFFE RENTI AL/PL ATELE T eos (absolute) 0.2 x10e3 /uL 0.0-0. 4 Not Available [facility] ([facility]) [address] [facility], [place], [address], 02/18/2024 08:31:15 02/17/20 24 02/18/2024 CBC WITH DIFFE RENTI AL/PL ATELE T baso (absolute) 0.0 x10e3 /uL 0.0-0. 2 Not Available [facility] ([facility]) [address] [facility], [place], [address], 02/18/2024 08:31:15 02/17/20 24 02/18/2024 CBC WITH DIFFE RENTI AL/PL ATELE T immature granulocytes 0 % notest ab. Not Available [facility] ([facility]) [address] [place], [address], 02/18/2024 08:31:15 02/17/20 24 02/18/2024 CBC WITH DIFFE RENTI AL/PL ATELE T immature grans (abs) 0.0 x10e3 /uL 0.0-0. 1 Not Available [facility] ([facility]) [address] [place], [address], 02/18/2024 08:31:15 02/17/20 24 02/18/2024 TRIIO DOTHY PRASAD E (T3), FREE triiodothyro nine (T3), free 2.1 pg/mL 2.0-4. 4 Not Available [facility] ([facility]) [address] [place], [address], 02/18/2024 08:31:16 07/20/20 24 07/21/2024 TSH+F REE T4 TSH 0.028 uIU/m L 0.450- 4.500 below low normal Not Available [facility] ([facility]) [address] [place], [address], 07/21/2024 08:23:44 07/20/20 24 07/21/2024 TSH+F REE T4 T4,free(dire ct) 1.80 NG/dL 0.82-1 .77 above high normal Not Available [facility] ([facility]) [address] [place], [address], 07/21/2024 08:23:44 07/20/20 24 07/21/2024 TRIIO DOTHY PRASAD E (T3), FREE triiodothyro nine (T3), free 2.8 pg/mL 2.0-4. 4 Not Available [facility] ([facility]) [address] [place], [address], 07/21/2024 08:23:45 01/13/20 24 01/13/2024 MAMMO , scree verona, digit al, bilat eral No observ ation record ed. [address] [address], [place], [address], 01/14/2024 19:39:30 02/10/20 25 02/09/2025 MAMMO , scree verona, digit al, bilat eral No observ ation record ed. [email or web address] [facility], [place], [address], 03/05/2025 15:22:57 03/12/20 25 03/12/2025 MAMMO , diagn ostic , unila teral No observ ation record ed. [address] [address], [place], [address], 03/12/2025 21:46:53 Result Notes None recorded. Problems Name Problem SNOMED Code Status Onset Date Resolution Date Notes Provider Name and Address Organization Details Recorded Time Long-term drug therapy Active 2023 HAWA Bradley Attn: Corky lyles,[address] [place], [address], [facility] 21:07:41 Obesity 328016877 Active 2023 HAWA Bradley Attn: Corky lyles,[address] [place], [address], [facility] 4 21:08:18 Body mass index 30+ - obesity 660766849 Active 2023 HAWA Bradley Attn: Corky lyles,[address] [place], [address], [facility] 4 21:08:18 Hypothyroidism 77868192 Active 2023 HAWA Bradley Attn: Corky lyles,[address] [place], [address], [place] [facility] 4 17:45:25 Forgetful 26164421 Active 2024 HAWA Bradley Attn: Corky lyles,[address] [facility], [place], [address], 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 5 20:36:09 Problem Notes None recorded. Procedures Surgical History Date Name Laterality Status Provider Name and Address Organization Details Recorded Time revision of breast implant completed Polo Lizarraga MA [facility] 12/18/2024 15:00:35 D & c after delivery completed Polo Lizarraga MA [facility] 01/27/2024 12:00:28 Imaging Results None recorded. Procedure [...] 80 mm[Hg] HAWA Bradley Attn: Accounting,[address] [place], [address], [place] - [facility] 12/18/2024 15:25:28 Date Recorded Body height Body mass index (BMI) Body weight Respiratory rate Oxygen saturation Oxygen saturation in Arterial blood by Pulse oximetry Heart rate Systolic blood pressure Diastolic blood pressure Provider Name and Address Organization Details Last Updated DateTime 177.8 cm 30 kg/m2 81155.8 1 g 20 /min 98 % 98 % 68 /min 118 mm[Hg] 82 mm[Hg] Polo Lizarraga MA [facility] 5 15:02:18 Date Recorded Body height Body mass index (BMI) Body weight Respiratory rate Oxygen saturation Oxygen saturation in Arterial blood by Pulse oximetry Heart rate Systolic blood pressure Diastolic blood pressure Provider Name and Address Organization Details Last Updated DateTime 4 177.8 cm 30.5 kg/m2 85171.6 6 g 20 /min 99 % 99 % 74 /min 116 mm[Hg] 82 mm[Hg] Polo Lizarraga MA [facility] 4 11:26:41 Social History Question Answer Notes LastModified by [employer] ion Details LastModified Time Tobacco Smoking Status Former Smoker quit 3 years ago Polo Lizarraga MA null, [facility] 01/26/2024 10:13:00 Do You Have An Advance [...] Skin Problems N Anemia N Heart Attack ([place]) N Anxiety Disorder N Diabetes N Muscle, [...] PF, 30 mcg/0.3 mL dose 11/27/2020 completed Polo Liz[place], [place] [facility] 12/18/2024 14:59:32 COVID-19, mRNA, LNP-S, PF, 30 mcg/0.3 mL dose 12/18/2020 completed Polo Liz[place] [facility] 12/18/2024 14:59:32 COVID-19, mRNA, LNP-S, PF, 30 mcg/0.3 mL dose 07/17/2021 completed Polo Lizarr[place] [facility] 12/18/2024 14:59:32 COVID-19, mRNA, LNP-S, PF, 30 mcg/0.3 mL dose, misael-sucrose 02/10/2022 completed Polo Lizarr[place] [facility] 12/18/2024 14:59:32 COVID-19, mRNA, LNP-S, bivalent, PF, 30 mcg/0.3 mL dose 08/17/2022 completed Polo Liz[place] [facility] 12/18/2024 14:59:32 Tdap 02/10/2022 completed Polo Lizarr[place] [facility] 12/18/2024 14:59:32 Influenza, split virus, quadrivalent, PF 08/17/2022 completed Polo Lizarr[place] [facility] 12/18/2024 14:59:32 Past Encounters Encounter ID Performer Location Encounter Start Date Encounter Closed Date Diagnosis/Indication Diagnosis SNOMED-CT Code Diagnosis ICD10 Code Diagnosis Note [id number] Ugo Matias MD [facility] [address] [place] [address] 01/27/2024 11:18:12 01/27/2024 14:25:28 Hypothyroidism 25587869 E03.9 pt is stable on levothyrox ine 175mcg daily. due for updated TFT panel. Long-term drug therapy 805785911 Z79.899 cmp, cbc and b12, folate labs are due Cholesterol screening 27 3917818 Z13.220 fasting lipids due. Diabetes m ellitus screening 464001308 Z13.1 a1c screening due Body mass index 30+ - obesity 807780623 Z68.30 bmi 30.5. pt is currently on phentermin e 37.5mg daily. Obesity 444331931 E66.9 discussed healthy diet, exercise, controllin g carbohydra chandler and added sugars in the diet [id number] Ugo Matias MD [facility] [address] [place] [address] 12/18/2024 14:39:53 12/18/2024 15:29:23 Hypothyroidism 84548504 E03.9 pt is stable on levothyrox ine 175mcg daily. due for updated TFT panel. Long-term drug therapy 773709019 Z79.899 cmp, cbc and b12, folate labs are due Cholesterol screening 27 9032680 Z13.220 fasting lipids due. Diabetes m ellitus screening 014891732 Z13.1 a1c screening due Adult heal th examination 515622501 Z00.01 Annual wellness exam completed Body mass index 30+ - obesity 305323605 Z68.30 bmi 30 Forgetful 22991407 R41.3 Screening vitamin B12 and folate as well as vitamin-D labs ordered Attention deficit hyperactivity disorder, predominantly inattentive type 61630511 F90.0 Trial of non stimulant therapy atomoxetin e 25 mg daily Health Concerns Section Related Observation LastModified by Organization Detai ls LastModified Time None Recorded Concern Status LastModified by Organization Details LastModified Time None Recorded Advance Directives Directive N: Payers Insurance Date Sequence Insurance Name Policy Number Policy Shetty Covered Member ID Shetty Member ID Guarantor Name 01/14/2025 1 [facility] Julien Garcia [id number] Esther Garcia Notes Date Note Type Note Provider Name and Address Organization Details Recorded Time 01/27/2024 text/html ThyroidReported bypatient.Notes:stabl e on levothyroxine 175mcg daily. pt is due for labs. Obesity: pt is on phentermine course for weight loss boost. HAWA Bradley Attn: Accounting[address] [place], [address], [facility] 02/12/2024 21:09:17 12/18/2024 text/html ThyroidReported bypatient.Notes:stabl e on levothyroxine 175mcg daily. pt is due for labs. Here for annual wellness Patient complaints of some forgetfulness and difficulty with focusing and task completion and easy distraction. HAWA Bradley Attn: Accounting[address] [place], [address], [facility] 01/11/2025 20:36:55 OBGyn Episode No OBEpisode recorded.
--- OUTSIDE RECORDS SUMMARY | 2025-03-13 13:03 | XMS_ITS | Clinical Summary ---
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 Procedures Procedure Name Priority Date/Time Associated Diagnosis Comments HEPATITIS C ANTIBODY Routine 08/18/2020 11:13 AM HUMAN RESOURCES OFFICE MANAGER Encounter for screening for infections with predominantly sexual mode of transmission from Last 3 Months or Most Recently Relevant to Health Maintenance Results * Hepatitis C antibody (08/18/2020 11:13 AM HUMAN RESOURCES OFFICE MANAGER) Hep C Ab Nonreactive Nonreactive [facility] Comment:Antibodies to HCV no t detected. Does NOT exclude the possibility of recent exposure to HCV. Blood specimen (specimen) 08/18/2020 11:13 AM HUMAN RESOURCES OFFICE MANAGER 08/18/2020 6:07 PM HUMAN RESOURCES OFFICE MANAGER Cindy Gaytan MD LAB MICROBIO LOGY - GENERAL ORDERABLES Edited Result - Final [facility] Department [place] [address] from Last 3 Months or Most Recently Relevant to Health Maintenance Insurance [facility] CHOICE PLUS [facility] HMO [facility] [employer] Advance Directives For more information, please contact: [phone] * Full Code (Latest Code Status on File) Date Activated Date Inactivated Comments 11/15/2020 6:35 AM 11/16/2020 12:22 PM * Full Code Date Activated Date Inactivated Comments 07/03/2020 6:49 AM 07/04/2020 4:50 AM * Full Code Date Activated Date Inactivated Comments 03/11/2020 12:15 PM 03/11/2020 4:58 PM Care Teams Dough Raiser Relationship Specialty Start Date End Date Leslie Eubanks PA PCP - General Physician Restuarant Crew Worker 10/02/20 Leslie Eubanks PA Physician Restuarant Crew Worker 10/02/20
== END 2025-03-13 12:58 | disposition home or self-care (01) ==
LOC: ANHIMG 13:00
PROVIDERS: PCP Physician Assistant; Visit Provider Obstetrics & Gynecology
DX: R92.8 Other abnormal and inconclusive findings on diagnostic imaging of breast (principal); N60.02 Solitary cyst of left breast
CPT/HCPCS: 76642